=== PATIENT | female | born 1975 | race Caucasian/White ===

== ENCOUNTER 2018-12-02 10:43 | Emergency (ER) | payer OTHER, SELFPAY ==
[2018-12-02 10:52] VITALS: BP 153/83; PULSE 88; RESP 12; TEMP 36.8; O2SAT 99; BMI 22.6
[2018-12-02 11:44] LABS: Add Manual Diff / Slide Review NO; Basophils Absolute Auto 100 /uL (0-100); Basophils Percent Auto 1.3 % (0-2); Eosinophils Absolute Auto 200 /uL (0-450); Hematocrit 39.6 % (36-46); Hemoglobin 13.3 g/dL (12.0-16.0); Lymphocytes Absolute Auto 2000 /uL (1100-4500); Lymphocytes Percent Auto 36.8 % (25-40); Mean Corpuscular HGB Conc 33.6 % (30-36); Mean Corpuscular Hemoglobin 31.7 PG (26-34); Mean Corpuscular Volume 94.5 fL (80-100); Monocytes Absolute Auto 400 /uL (0-900); Monocytes Percent Auto 6.9 % (3-14); Neutrophils Absolute Auto 2800 /uL (1500-7000); Platelet Count 219 X10^3/uL (150-400); Red Blood Cell Count 4.19 X10^6/uL (4.0-5.2); Red Cell Distribution Width 11.9 % (11.6-14.8); White Blood Cell Count 5.4 X10^3/uL (4.5-11.0)
[2018-12-02] MEDS: IBUPROFEN 400 MG TABLET 800 MG PO (11:47)
--- NOTE | 2018-12-02 11:58 | ED.EXTPRO ---
HPI - Extremity Problem General Chief complaint: Extremity Injury, Upper Stated complaint: LF ARM TINGLING Time Seen by Provider: 12/02/18 10:58 Source: patient Mode of arrival: ambulatory Limitations: no limitations History of Present Illness HPI Narrative: Patient complains of left shoulder and arm tightness and pain that started around 9:00 a.m. this morning. She states she was just going about her day, working from home and making breakfast when she began to notice a tightness in her arm. She states she thought that her shirt was too tight, so she changed her shirt, but the symptoms continued to worsen. Patient denies any associated symptoms; no chest pain, shortness of breath, dizziness, nausea, or sense of doom. She has never had symptoms like this before. She states she works out regularly, and has not noticed any decrease in her exercise tolerance. No shortness of breath or chest pain with exertion. Patient has no personal history of any medical problems. She states she does not have any family members who have had CT or stroke in their 40s. No other complaints at this time. She states the tightness has persisted, and that since the tightness began she also began to feel a numb and tingling sensation in her left hand. She states that this is about the same as it was earlier. Nothing makes it better or worse. Related Data Previous Rx's Medication Instructions Recorded bupropion HCl SR 100 mg tablet,12 100 mg PO BID #180 tab 06/21/18 hr sustained-release fluconazole 150 mg tablet 150 mg PO ONCE #1 tab 08/08/18 alprazolam 1 mg tablet 1 mg PO TID PRN #40 tab 11/02/18 Allergies Allergy/AdvReac Type Severity Reaction Status Date / Time No Known Drug Allergies Allergy Unverified 08/31/18 13:03 Review of Systems Constitutional Denies chills, Denies fever(s), Denies lethargy and Denies weakness Eyes Denies change in vision, Denies eye discharge, Denies irritation and Denies loss of vision ENT Ears, Nose, Mouth, and Throat: Denies change in voice, Denies neck pain and Denies sore throat Cardiovascular Denies chest pain, Denies irregular heart rhythm, Denies lightheadedness, Denies palpitations, Denies dyspnea, Denies dyspnea on exertion and Denies orthopnea Respiratory Denies cough, Denies dyspnea, Denies dyspnea on exertion and Denies wheezing Gastrointestinal Gastrointestinal: Denies abdominal pain, Denies change in bowel habits, Denies diarrhea, Denies nausea and Denies vomiting Genitourinary Denies hematuria, Denies flank pain, Denies urinary incontinence and Denies urinary urgency Musculoskeletal Denies neck pain Comments: Left arm tightness. Integumentary/Breasts Denies pruritus, Denies erythema, Denies rash and Denies wounds Neurologic Denies confusion, Denies loss of vision and Denies weakness Comments: Paresthesias left hand Psychiatric Denies anxiety, Denies confusion, Denies depression, Denies homicidal ideation and Denies suicidal ideation Endocrine Denies palpitations Hematologic/Lymphatic Denies easy bruising Allergic/Immunologic Denies wheezing [facility] Medical History Anxiety (Chronic) Pyelonephritis (Chronic 2015) Surgical History Status post delivery (Resolved) Status post tubal ligation (Resolved 2014) Social History Smoking Status: Former smoker Social History Smoking Status: Former smoker Exam Initial Vital Signs Initial Vital Signs: Vital Signs Temperature 98.3 F 12/02/18 10:52 Pulse Rate 88 12/02/18 10:52 Respiratory Rate 12 12/02/18 10:52 Blood Pressure 153/83 H 12/02/18 10:52 Pulse Oximetry 99 12/02/18 10:52 Const General: cooperative and well developed Nutritional Appearance: well nourished Orientation: alert, awake, oriented x3 and not confused [facility] Head: normocephalic and atraumatic Ears: external ears normal and TM's normal bilaterally Nose: external nose normal and No nasal discharge Face and sinus: sinuses nontender, face symmetric, no sinus tenderness and No dry mucous membranes Mouth: oral mucosae normal and moist mucous membranes Teeth and gingiva: dentition normal Throat: tonsils normal and uvula midline Eyes General: appearance normal, both eyes and all related structures Eyelids: eyelids normal Conjunctivae: conjunctivae normal Sclera: sclerae normal Pupils: PERRL EOM: EOM intact bilaterally Neck Neck: normal visual inspection, trachea midline, No lymphadenopathy, No midline deformity and No JVD Lymphatic: No lymphedema Chest Chest: normal inspection of the chest Resp Effort & Inspection: normal respiratory effort, able to speak in complete sentences, no respiratory distress and no use of accessory muscles Auscultation: clear to auscultation bilaterally, no rales, no rhonchi and no wheezes Cardio Rate: regular rate Rhythm: regular rhythm Heart Sounds: no click, no gallops, no murmurs and no rubs Pulses: normal peripheral pulses GI Inspection: non-distended Palpation: soft, no hepatosplenomegaly, No guarding, No pulsatile mass and No tender Auscultation: normal bowel sounds Back/Spine/Pelvis Back: No CVA tenderness Cervical Spine: cervical ROM normal and No pain with cervical ROM Thoracic/Lumbar Spine: thoracic and lumbar spine normal to inspection Skin General: no rashes or lesions noted, No jaundice and No petechiae Neuro General: alert, oriented x3, gait normal and no focal motor deficits Speech: speech normal Extrem General: full ROM, no clubbing, cyanosis or edema, no pedal edema and no calf tenderness Psych Appearance: well kempt Mental Status: mental status grossly normal Attitude: cooperative Thought Content: normal and suicidality Judgment: judgment good Course Course Narrative: Patient was very low risk for an CT or other serious cause of her left arm pain. However, the patient was very concerned about the possibility of an CT, given her age, and I did discuss with the patient and her that although she is extremely low risk the only way to know for sure whether she has had a cardiac event is to perform cardiac panel repeat troponin. The patient prefers to go this route. Patient was worked up with labs, including cardiac panel, and initial troponin was negative. A 2nd troponin was drawn 3 hr later, and this was also negative. Patient was feeling better, and I felt she was stable for discharge home. I have advised her that if she would has no further symptoms, then she does not need to have further workup. However, if she develops these symptoms repeatedly, then she should have a stress test just to be sure there is nothing concerning going on. Patient expresses understanding and is agreeable to plan. We have discussed the usual indications for return. Orders Ordered: ED Orders 12/02/18 11:35 Complete Blood Count AUTO DIFF Stat Comprehensive Metabolic Panel Stat Troponin & CK Cardiac Panel Stat 12/02/18 14:18 Troponin I Stat Discontinued Medications Ibuprofen (Advil) 800 mg PO NOW ONE Stop: 12/02/18 11:24 Last Admin: 12/02/18 11:47 Dose: 800 mg Vital Signs - 8 hr 12/02/18 12:32 12/02/18 14:46 12/02/18 15:37 Temperature 98.4 F Pulse Rate 76 69 78 Respiratory Rate 17 16 16 Blood Pressure [Left Arm] 128/93 H 130/91 H 130/92 H Pulse Oximetry 100 100 98 MDM - Extremity (Nontraumatic) Medical Records Attestation: I reviewed the patient's medical records. Lab Data Attestation: I reviewed the patient's lab results. Result diagrams: 12/02/18 11:35 12/02/18 11:35 Lab Results 12/02/18 12/02/18 12/02/18 Range/Units 11:35 11:35 14:18 WBC 5.4 (4.5-11.0) X10^3/uL RBC 4.19 (4.0-5.2) X10^6/uL Hgb 13.3 (12.0-16.0) g/dL Hct 39.6 (36-46) % MCV 94.5 (80-100) fL MCH 31.7 (26-34) PG MCHC 33.6 (30-36) % RDW 11.9 (11.6-14.8) % Plt Count 219 (150-400) X10^3/uL Neut % (Auto) 52.0 (50-75) % Lymph % (Auto) 36.8 (25-40) % [place] % (Auto) 6.9 (3-14) % Eos % (Auto) 3.0 (2-4) % Baso % (Auto) 1.3 (0-2) % Neut # (Auto) 2800 (3578-7036) /uL Lymph # (Auto) 2000 (5544-6984) /uL [place] # (Auto) 400 (0-900) /uL Eos # (Auto) 200 (0-450) /uL Baso # (Auto) 100 (0-100) /uL Sodium 140 (137-145) mmol/L Potassium 3.8 (3.4-5.1) mmol/L Chloride 104 (98-107) mmol/L Carbon Dioxide 26 (22-32) mmol/L BUN 9 (7-17) mg/dL Creatinine 0.60 (0.52-1.04) mg/dL Estimated GFR > 60.0 (>60) mL/min BUN/Creatinine Ratio 15.0 (6-22) Glucose 89 (70-100) mg/dL Calcium 9.2 (8.4-10.2) mg/dL Total Bilirubin 0.4 (0.2-1.3) mg/dL AST 24 (14-36) IU/L ALT 30 (9-52) IU/L Alkaline Phosphatase 58 (38-126) U/L Total Creatine Kinase 51 (30-135) U/L CK-MB (CK-2) TNP CK-MB (CK-2) Rel Index TNP Troponin I < 0.012 < 0.012 (0.01-0.034) ng/mL Total Protein 6.8 (6.3-8.2) g/dL Albumin 4.3 (3.5-5.0) g/dL Globulin 2.5 (1.7-4.1) g/dL Albumin/Globulin Ratio 1.7 (1.0-2.8) ECG Data Attestation EKG: I personally reviewed and interpreted this ECG as follows: Prior ECG tracings: not available for review Interpretation: Twelve lead EKG performed December 02, 2018 at 10:54 a.m., as follows: Regular ventricular rhythm with a rate of 75 beats per minute [place] interval 148 milliseconds QRS duration 106 millisecond QTC interval 412 milliseconds No ectopy Nonspecific ST T wave changes Interpretation: Normal sinus rhythm; incomplete right bundle-branch block; no STEMI; borderline EKG as interpreted by ED MD. Discharge Plan Departure Patient Disposition: Home Clinical Impression: Arm pain, left Discharge Date/Time: 12/02/18 15:45 Interventions: ED Discharge Assessment Last Done: 12/02/18 15:45 Instructions: DI for Arm Pain Activity Restrictions/Additional Instructions: Everything looked good today. Both sets of your cardiac enzymes were normal. There is no evidence of a heart attack or other serious condition. Prescriptions: No Action fluconazole 150 mg tablet 150 mg PO ONCE Qty: 1 RF: 0 alprazolam [Xanax] 1 mg tablet 1 mg PO TID PRN (Reason: anxiety) Qty: 40 RF: 0 bupropion HCl [Wellbutrin SR] 100 mg tablet extended release 12 hr 100 mg PO BID Qty: 180 RF: 0 Referrals: Vianey Verde ARNP [Primary Care Provider] -
--- NOTE | 2018-12-02 12:02 | ED_ITS ---
HPI - Extremity Problem General Chief complaint: Extremity Injury, Upper Stated complaint: LF ARM TINGLING Time Seen by Provider: 12/02/18 10:58 Source: patient Mode of arrival: ambulatory Limitations: no limitations History of Present Illness HPI Narrative: Patient complains of left shoulder and arm tightness and pain that started around 9:00 a.m. this morning. She states she was just going about her day, working from home and making breakfast when she began to notice a tightness in her arm. She states she thought that her shirt was too tight, so she changed her shirt, but the symptoms continued to worsen. Patient denies any associated symptoms; no chest pain, shortness of breath, dizziness, nausea, or sense of doom. She has never had symptoms like this before. She states she works out regularly, and has not noticed any decrease in her exercise tolerance. No shortness of breath or chest pain with exertion. Patient has no personal history of any medical problems. She states she does not have any family members who have had VA or stroke in their 40s. No other complaints at this time. She states the tightness has persisted, and that since the tightness began she also began to feel a numb and tingling sensation in her left hand. She states that this is about the same as it was earlier. Nothing makes it better or worse. Related Data Previous Rx's Medication Instructions Recorded bupropion HCl SR 100 mg tablet,12 100 mg PO BID #180 tab 06/21/18 hr sustained-release fluconazole 150 mg tablet 150 mg PO ONCE #1 tab 08/08/18 alprazolam 1 mg tablet 1 mg PO TID PRN #40 tab 11/02/18 Allergies Allergy/AdvReac Type Severity Reaction Status Date / Time No Known Drug Allergies Allergy Unverified 08/31/18 13:03 Review of Systems Constitutional Denies chills, Denies fever(s), Denies lethargy and Denies weakness Eyes Denies change in vision, Denies eye discharge, Denies irritation and Denies loss of vision ENT Ears, Nose, Mouth, and Throat: Denies change in voice, Denies neck pain and Denies sore throat Cardiovascular Denies chest pain, Denies irregular heart rhythm, Denies lightheadedness, Denies palpitations, Denies dyspnea, Denies dyspnea on exertion and Denies orthopnea Respiratory Denies cough, Denies dyspnea, Denies dyspnea on exertion and Denies wheezing Gastrointestinal Gastrointestinal: Denies abdominal pain, Denies change in bowel habits, Denies diarrhea, Denies nausea and Denies vomiting Genitourinary Denies hematuria, Denies flank pain, Denies urinary incontinence and Denies urinary urgency Musculoskeletal Denies neck pain Comments: Left arm tightness. Integumentary/Breasts Denies pruritus, Denies erythema, Denies rash and Denies wounds Neurologic Denies confusion, Denies loss of vision and Denies weakness Comments: Paresthesias left hand Psychiatric Denies anxiety, Denies confusion, Denies depression, Denies homicidal ideation and Denies suicidal ideation Endocrine Denies palpitations Hematologic/Lymphatic Denies easy bruising Allergic/Immunologic Denies wheezing [facility] Medical History Anxiety (Chronic) Pyelonephritis (Chronic 2015) Surgical History Status post delivery (Resolved) Status post tubal ligation (Resolved 2014) Social History Smoking Status: Former smoker Social History Smoking Status: Former smoker Exam Initial Vital Signs Initial Vital Signs: Vital Signs Temperature 98.3 F 12/02/18 10:52 Pulse Rate 88 12/02/18 10:52 Respiratory Rate 12 12/02/18 10:52 Blood Pressure 153/83 H 12/02/18 10:52 Pulse Oximetry 99 12/02/18 10:52 Const General: cooperative and well developed Nutritional Appearance: well nourished Orientation: alert, awake, oriented x3 and not confused [facility] Head: normocephalic and atraumatic Ears: external ears normal and TM's normal bilaterally Nose: external nose normal and No nasal discharge Face and sinus: sinuses nontender, face symmetric, no sinus tenderness and No dry mucous membranes Mouth: oral mucosae normal and moist mucous membranes Teeth and gingiva: dentition normal Throat: tonsils normal and uvula midline Eyes General: appearance normal, both eyes and all related structures Eyelids: eyelids normal Conjunctivae: conjunctivae normal Sclera: sclerae normal Pupils: PERRL EOM: EOM intact bilaterally Neck Neck: normal visual inspection, trachea midline, No lymphadenopathy, No midline deformity and No JVD Lymphatic: No lymphedema Chest Chest: normal inspection of the chest Resp Effort & Inspection: normal respiratory effort, able to speak in complete sentences, no respiratory distress and no use of accessory muscles Auscultation: clear to auscultation bilaterally, no rales, no rhonchi and no wheezes Cardio Rate: regular rate Rhythm: regular rhythm Heart Sounds: no click, no gallops, no murmurs and no rubs Pulses: normal peripheral pulses GI Inspection: non-distended Palpation: soft, no hepatosplenomegaly, No guarding, No pulsatile mass and No tender Auscultation: normal bowel sounds Back/Spine/Pelvis Back: No CVA tenderness Cervical Spine: cervical ROM normal and No pain with cervical ROM Thoracic/Lumbar Spine: thoracic and lumbar spine normal to inspection Skin General: no rashes or lesions noted, No jaundice and No petechiae Neuro General: alert, oriented x3, gait normal and no focal motor deficits Speech: speech normal Extrem General: full ROM, no clubbing, cyanosis or edema, no pedal edema and no calf tenderness Psych Appearance: well kempt Mental Status: mental status grossly normal Attitude: cooperative Thought Content: normal and suicidality Judgment: judgment good Course Course Narrative: Patient was very low risk for an VA or other serious cause of her left arm pain. However, the patient was very concerned about the possibility of an VA, given her age, and I did discuss with the patient and her that although she is extremely low risk the only way to know for sure whether she has had a cardiac event is to perform cardiac panel repeat troponin. The patient prefers to go this route. Patient was worked up with labs, including cardiac panel, and initial troponin was negative. A 2nd troponin was drawn 3 hr later, and this was also negative. Patient was feeling better, and I felt she was stable for discharge home. I have advised her that if she would has no further symptoms, then she does not need to have further workup. However, if she develops these symptoms repeatedly, then she should have a stress test just to be sure there is nothing concerning going on. Patient expresses understanding and is agreeable to plan. We have discussed the usual indications for return. Orders Ordered: ED Orders 12/02/18 11:35 Complete Blood Count AUTO DIFF Stat Comprehensive Metabolic Panel Stat Troponin & CK Cardiac Panel Stat 12/02/18 14:18 Troponin I Stat Discontinued Medications Ibuprofen (Advil) 800 mg PO NOW ONE Stop: 12/02/18 11:24 Last Admin: 12/02/18 11:47 Dose: 800 mg Vital Signs - 8 hr 12/02/18 12:32 12/02/18 14:46 12/02/18 15:37 Temperature 98.4 F Pulse Rate 76 69 78 Respiratory Rate 17 16 16 Blood Pressure [Left Arm] 128/93 H 130/91 H 130/92 H Pulse Oximetry 100 100 98 MDM - Extremity (Nontraumatic) Medical Records Attestation: I reviewed the patient's medical records. Lab Data Attestation: I reviewed the patient's lab results. Result diagrams: 12/02/18 11:35 12/02/18 11:35 Lab Results 12/02/18 12/02/18 12/02/18 Range/Units 11:35 11:35 14:18 WBC 5.4 (4.5-11.0) X10^3/uL RBC 4.19 (4.0-5.2) X10^6/uL Hgb 13.3 (12.0-16.0) g/dL Hct 39.6 (36-46) % MCV 94.5 (80-100) fL MCH 31.7 (26-34) PG MCHC 33.6 (30-36) % RDW 11.9 (11.6-14.8) % Plt Count 219 (150-400) X10^3/uL Neut % (Auto) 52.0 (50-75) % Lymph % (Auto) 36.8 (25-40) % [place] % (Auto) 6.9 (3-14) % Eos % (Auto) 3.0 (2-4) % Baso % (Auto) 1.3 (0-2) % Neut # (Auto) 2800 (0471-8069) /uL Lymph # (Auto) 2000 (7874-3111) /uL [place] # (Auto) 400 (0-900) /uL Eos # (Auto) 200 (0-450) /uL Baso # (Auto) 100 (0-100) /uL Sodium 140 (137-145) mmol/L Potassium 3.8 (3.4-5.1) mmol/L Chloride 104 (98-107) mmol/L Carbon Dioxide 26 (22-32) mmol/L BUN 9 (7-17) mg/dL Creatinine 0.60 (0.52-1.04) mg/dL Estimated GFR > 60.0 (>60) mL/min BUN/Creatinine Ratio 15.0 (6-22) Glucose 89 (70-100) mg/dL Calcium 9.2 (8.4-10.2) mg/dL Total Bilirubin 0.4 (0.2-1.3) mg/dL AST 24 (14-36) IU/L ALT 30 (9-52) IU/L Alkaline Phosphatase 58 (38-126) U/L Total Creatine Kinase 51 (30-135) U/L CK-MB (CK-2) TNP CK-MB (CK-2) Rel Index TNP Troponin I < 0.012 < 0.012 (0.01-0.034) ng/mL Total Protein 6.8 (6.3-8.2) g/dL Albumin 4.3 (3.5-5.0) g/dL Globulin 2.5 (1.7-4.1) g/dL Albumin/Globulin Ratio 1.7 (1.0-2.8) ECG Data Attestation EKG: I personally reviewed and interpreted this ECG as follows: Prior ECG tracings: not available for review Interpretation: Twelve lead EKG performed December 02, 2018 at 10:54 a.m., as follows: Regular ventricular rhythm with a rate of 75 beats per minute [place] interval 148 milliseconds QRS duration 106 millisecond QTC interval 412 milliseconds No ectopy Nonspecific ST T wave changes Interpretation: Normal sinus rhythm; incomplete right bundle-branch block; no STEMI; borderline EKG as interpreted by ED MD. Discharge Plan Departure Patient Disposition: Home Clinical Impression: Arm pain, left Discharge Date/Time: 12/02/18 15:45 Interventions: ED Discharge Assessment Last Done: 12/02/18 15:45 Instructions: DI for Arm Pain Activity Restrictions/Additional Instructions: Everything looked good today. Both sets of your cardiac enzymes were normal. There is no evidence of a heart attack or other serious condition. Prescriptions: No Action fluconazole 150 mg tablet 150 mg PO ONCE Qty: 1 RF: 0 alprazolam [Xanax] 1 mg tablet 1 mg PO TID PRN (Reason: anxiety) Qty: 40 RF: 0 bupropion HCl [Wellbutrin SR] 100 mg tablet extended release 12 hr 100 mg PO BID Qty: 180 RF: 0 Referrals: Vianey Verde ARNP [Primary Care Provider] -
[2018-12-02 12:11] LABS: Alanine Aminotransferase 30 IU/L (9-52); Albumin 4.3 g/dL (3.5-5.0); Albumin Globulin Ratio 1.7 (1.0-2.8); Alkaline Phosphatase 58 U/L (38-126); Aspartate Aminotransferase 24 IU/L (14-36); Bilirubin Total 0.4 mg/dL (0.2-1.3); Blood Urea Nitrogen 9 mg/dL (7-17); Calcium 9.2 mg/dL (8.4-10.2); Carbon Dioxide 26 mmol/L (22-32); Chloride 104 mmol/L (98-107); Creatine Kinase 51 U/L (30-135); Estimated Glomerular Filt Rate > 60.0 mL/min (>60); Globulin 2.5 g/dL (1.7-4.1); Glucose 89 mg/dL (70-100); HEMOLYSIS < 15 (0-50); Potassium 3.8 mmol/L (3.4-5.1); Sodium 140 mmol/L (137-145); Total Protein 6.8 g/dL (6.3-8.2)
[2018-12-02 12:26] LABS: Troponin I < 0.012 ng/mL (0.01-0.034)
[2018-12-02 12:32] VITALS: BP 128/93; PULSE 76; RESP 17; O2SAT 100
[2018-12-02 14:46] VITALS: BP 130/91; PULSE 69; RESP 16; TEMP 36.9; O2SAT 100
[2018-12-02 14:54] LABS: Troponin I < 0.012 ng/mL (0.01-0.034)
[2018-12-02 15:37] VITALS: BP 130/92; PULSE 78; RESP 16; O2SAT 98
== END 2018-12-02 15:45 | disposition home or self-care (01) ==
PROVIDERS: Emergency Provider Emergency Medicine; PCP Registered Nurse
DX: M79.602 Pain in left arm (principal)
CPT/HCPCS: 36415; 80053; 82550; 84484; 85025; 93005; 99283; 99284

== ENCOUNTER → 2018-12-06 12:28 | Outpatient (CLI) | payer OTHER, SELFPAY ==
--- NOTE | 2018-12-06 12:29 | DI.MG.S_ITS ---
BILATERAL DIGITAL SCREENING MAMMOGRAM 3D/2D WITH CAD: 12/06/2018 CLINICAL: Routine screening. No prior exams were available for comparison. The tissue of both breasts is heterogeneously dense. This may lower the sensitivity of mammography. Current study was also evaluated with a Computer Aided Detection (CAD) system. No significant masses, calcifications, or other findings are seen in either breast. IMPRESSION: NEGATIVE There is no mammographic evidence of malignancy. A 1 year screening mammogram is recommended. This exam was interpreted at Station ID: [id number]. NOTE: For mammograms, a report in lay terms will be sent to the patient. Approximately 15% of breast malignancies will not be visualized mammographically. In the management of a palpable breast mass, a negative mammogram must not discourage biopsy of a clinically suspicious lesion. Electronically Signed By: Jose lozada/sierra:12/06/2018 13:15:50 letter sent: Normal Exam ACR BI-RADS Category 1: Negative [id number]
== END ==
PROVIDERS: PCP Registered Nurse; Visit Provider Registered Nurse
DX: Z12.31 Encounter for screening mammogram for malignant neoplasm of breast (principal)
CPT/HCPCS: 77063; 77067

== ENCOUNTER 2018-12-15 11:14 | Observation (INO) | payer OTHER, SELFPAY ==
[2018-12-15] VITALS (12 sets, daily range): BP systolic 114–162; BP diastolic 72–110; PULSE 66–90; RESP 14–19; TEMP 36.6–37; O2SAT 95–100; BMI 21.9
--- NOTE | 2018-12-15 | DI.MRI.S_ITS ---
PROCEDURE: MR STROKE Pre- and post-contrast brain MRI, non-contrast brain MR angiogram, pre- and postcontrast neck MR angiogram INDICATIONS: TIA, left headache, right visual field change TECHNIQUE: Brain: Noncontrast axial T1 spin echo, axial T2 fast spin echo, sagittal and axial FLAIR, coronal T2 fast spin echo, axial gradient echo, axial diffusion and ADC through the brain. After the administration of contrast, axial 3D VIBE of the cranial vasculature and brain. Brain MRA: Non-contrast 3-D time of flight MR angiogram, with multiple ebxmgyl-gzbxvkqbc-yylybnwayi (MIP) reformats performed. Neck MRA: Axial and sagittal TruFISP through the neck. Coronal dynamic MR angiogram during administration of contrast in the arterial and venous phases, with 3-dimenstional zxjisza-dyjlgmftt-vmojgxwmqk (MIP) reformats constructed from subtraction images. COMPARISON: None. FINDINGS: Image quality: Excellent. BRAIN: CSF spaces: Ventricles are normal in size and shape. Basal cisterns are patent. No extra-axial fluid collections. Brain: No intracranial bleeds or mass effects. Currie-white matter interface is normal. Diffusion weighted images show no acute ischemic insults. Brainstem appears normal. Normal intravascular flow voids are present. No abnormal intracranial enhancement. Skull and face: Calvarial marrow signal is normal. Orbits appear normal. Sinuses: Sinuses and mastoids are clear except for minimal mucosal thickening in the floor of the maxillary antrum bilaterally. BRAIN MR ANGIOGRAM: Anterior circulation: Intracranial internal carotid arteries are normal in size and enhancement. The flow within the paired anterior cerebral arteries is normal and symmetric. The flow within the middle cerebral arteries is normal and symmetric. The anterior communicating artery is seen. No stenoses, occlusions, or aneurysms. Posterior circulation: The visualized portions of the vertebral arteries demonstrate normal caliber, and join to form a normal appearing basilar artery. The flow within the posterior cerebral arteries is normal and symmetric. No stenoses, occlusions, or aneurysms. NECK MR ANGIOGRAM: Carotids: Great vessels demonstrate a bovine anatomy as they arise from the aortic arch. The origins of the common carotid arteries appear patent. The calibers and courses of both common carotid arteries are normal. The bifurcation regions appear normal bilaterally. The internal carotid arteries demonstrate normal course and caliber. Posterior circulation: The origins of the vertebral arteries appear patent. More superior portions of both vertebral arteries demonstrate normal course and caliber, and join to form a normal appearing basilar artery. Miscellaneous: Subclavian arteries appear patent. Pre-contrast images through the neck show no soft tissue abnormalities. IMPRESSION: BRAIN MRI: No evidence of acute ischemia. Minimal bilateral maxillary sinus disease. BRAIN MR ANGIOGRAM: Negative examination. No intracranial stenosis or occlusion. NECK MR ANGIOGRAM: Negative examination. No ICA stenosis Dictated by: Saqib Owen M.D. on 12/16/2018 at 11:17 Approved by: Saqib Owen M.D. on 12/16/2018 at 11:27
--- NOTE | 2018-12-15 11:28 | DI.CT.S_ITS ---
PROCEDURE: CT HEAD/BRAIN WO CON INDICATIONS: blurred vision, slurred speech, TPA CANDIDATE TECHNIQUE: Noncontrast 4.5 mm thick angled axial sections acquired from the foramen magnum to the vertex, with coronal and sagittal reformats. For radiation dose reduction, the following was used: automated exposure control, adjustment of mA and/or kV according to patient size. COMPARISON: None. FINDINGS: Image quality: Excellent. CSF spaces: Basal cisterns are patent. No extra-axial fluid collections. Ventricles are normal in size and shape. Brain: No midline shift. No intracranial masses or hemorrhage. Currie-white matter interface is normal. Skull and face: Calvarium and visualized facial bones are intact, without suspicious lesions. Sinuses: Visualized sinuses and mastoids are clear. IMPRESSION: Normal head CT. The result was discussed with Dr. Sathya Jackson on 12/15/2018 at 1134 hours. Dictated by: Anthony Randhawa M.D. on 12/15/2018 at 11:31 Approved by: Anthony Randhawa M.D. on 12/15/2018 at 11:35
[2018-12-15 11:43] LABS: Add Manual Diff / Slide Review NO; Basophils Absolute Auto 100 /uL (0-100); Basophils Percent Auto 1.1 % (0-2); Eosinophils Absolute Auto 200 /uL (0-450); Hemoglobin 13.9 g/dL (12.0-16.0); Lymphocytes Absolute Auto 2300 /uL (1100-4500); Lymphocytes Percent Auto 35.4 % (25-40); Mean Corpuscular Hemoglobin 31.5 PG (26-34); Mean Corpuscular Volume 92.9 fL (80-100); Monocytes Absolute Auto 500 /uL (0-900); Monocytes Percent Auto 7.2 % (3-14); Neutrophils Absolute Auto 3500 /uL (1500-7000); Neutrophils Percent Auto 53.3 % (50-75); Platelet Count 205 X10^3/uL (150-400); Red Blood Cell Count 4.41 X10^6/uL (4.0-5.2); Red Cell Distribution Width 12.1 % (11.6-14.8); White Blood Cell Count 6.5 X10^3/uL (4.5-11.0)
[2018-12-15 11:50] LABS: INR 0.9 (0.9-1.3); Prothrombin Time 10.7 SECONDS (10.1-12.7)
[2018-12-15 11:52] LABS: PTT Partial Thromboplastin Tim 34 SECONDS (26.4-36.2)
[2018-12-15 11:55] LABS: BUN Creatinine Ratio 18.3 (6-22); Blood Urea Nitrogen 11 mg/dL (7-17); Calcium 9.3 mg/dL (8.4-10.2); Carbon Dioxide 24 mmol/L (22-32); Chloride 103 mmol/L (98-107); Estimated Glomerular Filt Rate > 60.0 mL/min (>60); Glucose 96 mg/dL (70-100); HEMOLYSIS < 15 (0-50); Potassium 3.9 mmol/L (3.4-5.1); Sodium 138 mmol/L (137-145)
--- NOTE | 2018-12-15 12:03 | ED_ITS ---
HPI - Neuro Symptoms/Deficit General Chief Complaint: Neuro Symptoms/Deficit Stated Complaint: R EYE WEIRD VISION,SLURRED SPEECH THIS MORNING Time Seen by Provider: 12/15/18 11:20 Source: patient Mode of arrival: ambulatory Limitations: no limitations History of Present Illness HPI Narrative: 42-year-old female, nonsmoker, otherwise healthy presents at the request of her water resources engineer for evaluation of stroke-like symptoms. The patient was in normal state of health until 915 this morning when she developed a near complete visual field cut and had slurred speech and trouble finding words. She presented to her water resources engineer who performed an ophthalmological exam and found no abnormal findings at which point the patient was sent here for stroke evaluation. Of particular interest is the patient's presentation to our department last week with focal neurologic findings as evidence by weakness of the left upper extremity. Patient denies headache, any ongoing symptoms, fever chills or recent injury. Patient activated as code stroke and taken directly to CT scan Onset (ago): hour(s) Last Observed Normal: 09:15 Location: speech History of same: No Severity: mild Relieving factors: none Exacerbating factors: none Context: sudden onset On Anticoagulants: No Treatments Prior to Arrival: none Related Data Home Medications Medication Instructions Recorded Confirmed bupropion HCl [Wellbutrin SR] 100 mg PO DAILY 12/15/18 12/15/18 multivitamin 1 tab PO DAILY 12/15/18 12/15/18 Previous Rx's Medication Instructions Recorded alprazolam 1 mg tablet 1 mg PO TID PRN #40 tab 11/02/18 Allergies Allergy/AdvReac Type Severity Reaction Status Date / Time No Known Drug Allergies Allergy Unverified 08/31/18 13:03 Review of Systems Constitutional Denies chills, Denies fever(s), Denies lethargy and Denies weakness Eyes Denies change in vision, Denies eye discharge, Denies irritation and Reports loss of vision ENT Ears, Nose, Mouth, and Throat: Denies change in voice, Denies neck pain and Denies sore throat Cardiovascular Denies chest pain, Denies irregular heart rhythm, Denies lightheadedness, Denies palpitations, Denies dyspnea, Denies dyspnea on exertion and Denies orthopnea Respiratory Denies cough, Denies dyspnea, Denies dyspnea on exertion and Denies wheezing Gastrointestinal Gastrointestinal: Denies abdominal pain, Denies change in bowel habits, Denies diarrhea, Denies nausea and Denies vomiting Genitourinary Denies hematuria, Denies flank pain, Denies urinary incontinence and Denies urinary urgency Musculoskeletal Denies neck pain Integumentary/Breasts Denies pruritus, Denies erythema, Denies rash and Denies wounds Neurologic Reports abnormal speech, Denies confusion, Reports loss of vision and Denies weakness Psychiatric Denies anxiety, Denies confusion, Denies depression, Denies homicidal ideation and Denies suicidal ideation Endocrine Denies palpitations Hematologic/Lymphatic Denies easy bruising Allergic/Immunologic Denies wheezing [facility] Medical History Anxiety (Chronic) Pyelonephritis (Chronic 2015) Surgical History Status post delivery (Resolved) Status post tubal ligation (Resolved 2014) Social History household members: spouse and children Smoking Status: Former smoker Social History household members: spouse and children Smoking Status: Former smoker Exam Narrative Exam Narrative: GENERAL: This is a well-nourished, well-developed patient, in mild distress. HEAD: Atraumatic. Normocephalic. No temporal or scalp tenderness. EYES: Pupils equal round and reactive. Extraocular motions intact. No scleral icterus. No injection or drainage. ENT: Nose without bleeding, purulent drainage or septal hematoma. Throat without erythema, tonsillar hypertrophy or exudate. Uvula midline. Airway patent. NECK: Trachea midline. No JVD or lymphadenopathy. Supple, nontender, no meningeal signs. CARDIOVASCULAR: Regular rate and rhythm without murmurs, gallops, or rubs. RESPIRATORY: Clear to auscultation. Breath sounds equal bilaterally. No wheezes, rales, or rhonchi. GASTROINTESTINAL: Abdomen soft, non-tender, nondistended. No hepato- splenomegaly, or palpable masses. No guarding. EXTREMITIES: No clubbing, cyanosis, or edema. No joint tenderness, effusion, or edema noted. BACK: Nontender without deformity or crepitance. No flank tenderness. NEURO: AOx3. SKIN: No rash or erythema. Initial Vital Signs Initial Vital Signs: Vital Signs Pulse Rate 75 12/15/18 11:28 Respiratory Rate 15 12/15/18 11:28 Blood Pressure 162/110 H 12/15/18 11:28 Pulse Oximetry 100 12/15/18 11:28 Scores ABCD2 Age >= 60 years: no Initial BP. Either SBP >= 140 or DBP >= 90.: yes Clinical features of the TIA: speech disturbance without weakness Duration of symptoms: 10-59 minutes History of diabetes: no ABCD2 Score: 3 Course Orders Ordered: ED Orders 12/15/18 11:20 EKG-12 Lead Stat 12/15/18 11:28 CT head/brain wo con Stat 12/15/18 11:30 Basic Metabolic Panel Stat Complete Blood Count AUTO DIFF Stat Partial Thromboplastin Time Stat Prothrombin Time INR Stat 12/15/18 11:50 Urine Drug Screen, Rapid Stat 12/15/18 19:33 Consult to Discharge Planning Routine Consult to Physical Therapy Evaluate & Treat 12/16/18 Basic Metabolic Panel Routine Complete Blood Count AUTO DIFF Routine Lipid Panel Routine Acetaminophen (Tylenol) 650 mg PO Q6HR PRN PRN Reason: As Needed for Fever/Mild Pain Alprazolam (Xanax) 1 mg PO TID PRN PRN Reason: anxiety Bupropion HCl (Wellbutrin Sr) 100 mg PO DAILY [facility] Enoxaparin Sodium (Lovenox) 40 mg SUBCUT DAILY [facility] Sodium Chloride (Normal Saline 0.9%) 1,000 mls @ 150 mls/hr IV CONT DANIEL Last Infusion: 12/15/18 16:26 Dose: 150 mls/hr Admin: 12/15/18 12:14 Dose: 150 mls/hr Morphine Sulfate (Morphine) 2 mg IV Q4HR PRN PRN Reason: Pain, Moderate (4-6) Morphine Sulfate (Morphine) 4 mg IV Q4HR PRN PRN Reason: Pain, Severe (7-10) Ondansetron HCl (Zofran) 4 mg IV Q8HR PRN PRN Reason: Nausea And Vomiting Pantoprazole Sodium (Protonix) 20 mg PO 0600 [facility] Polyethylene Glycol (Miralax) 17 gm PO DAILY [facility] Reevaluation(s) Reevaluation #1: patient remains asymptomatic for duration of her stay in the emergency department Consultations Consultation #1: Dr. Green happy to accept Vital Signs - 8 hr 12/15/18 12:31 12/15/18 13:03 12/15/18 13:30 Temperature Pulse Rate 67 66 76 Respiratory Rate 14 19 18 Blood Pressure Blood Pressure [Right Arm] 147/90 H 126/90 127/89 Pulse Oximetry 100 100 100 12/15/18 14:15 12/15/18 14:45 12/15/18 15:30 Temperature Pulse Rate 81 76 88 Respiratory Rate 18 16 16 Blood Pressure Blood Pressure [Right Arm] 139/90 124/85 114/81 Pulse Oximetry 98 99 100 12/15/18 16:00 12/15/18 16:30 12/15/18 17:54 Temperature 98 F Pulse Rate 74 76 90 Respiratory Rate 16 16 Blood Pressure 152/86 H 132/90 Blood Pressure [Right Arm] 123/84 Pulse Oximetry 100 98 12/15/18 19:29 Temperature Pulse Rate Respiratory Rate Blood Pressure Blood Pressure [Right Arm] Pulse Oximetry 96 MDM - Neuro Symptoms/Deficit Lab Data Result diagrams: 12/15/18 11:30 12/15/18 11:30 Lab Results 12/15/18 12/15/18 12/15/18 Range/Units 11:30 11:30 11:30 WBC 6.5 (4.5-11.0) X10^3/uL RBC 4.41 (4.0-5.2) X10^6/uL Hgb 13.9 (12.0-16.0) g/dL Hct 41.0 (36-46) % MCV 92.9 (80-100) fL MCH 31.5 (26-34) PG MCHC 34.0 (30-36) % RDW 12.1 (11.6-14.8) % Plt Count 205 (150-400) X10^3/uL Neut % (Auto) 53.3 (50-75) % Lymph % (Auto) 35.4 (25-40) % Gilliam % (Auto) 7.2 (3-14) % Eos % (Auto) 3.0 (2-4) % Baso % (Auto) 1.1 (0-2) % Neut # (Auto) 3500 (9020-8174) /uL Lymph # (Auto) 2300 (5261-4870) /uL Gilliam # (Auto) 500 (0-900) /uL Eos # (Auto) 200 (0-450) /uL Baso # (Auto) 100 (0-100) /uL PT 10.7 (10.1-12.7) SECONDS INR 0.9 (0.9-1.3) APTT 34 (26.4-36.2) SECONDS Sodium 138 (137-145) mmol/L Potassium 3.9 (3.4-5.1) mmol/L Chloride 103 (98-107) mmol/L Carbon Dioxide 24 (22-32) mmol/L BUN 11 (7-17) mg/dL Creatinine 0.60 (0.52-1.04) mg/dL Estimated GFR > 60.0 (>60) mL/min BUN/Creatinine Ratio 18.3 (6-22) Glucose 96 (70-100) mg/dL Calcium 9.3 (8.4-10.2) mg/dL Urine Opiates Screen (Negative) Ur Oxycodone Screen (Negative) Urine Methadone Screen (Negative) Ur Barbiturates Screen (Negative) U Tricyclic Antidepress (Negative) Ur Phencyclidine Scrn (Negative) Ur Amphetamines Screen (Negative) U Methamphetamines Scrn (Negative) Ur MDMA Scrn (Ecstasy) (Negative) U Benzodiazepines Scrn (Negative) Urine Cocaine Screen (Negative) U Marijuana (THC) Screen (Negative) 12/15/18 Range/Units 11:50 WBC (4.5-11.0) X10^3/uL RBC (4.0-5.2) X10^6/uL Hgb (12.0-16.0) g/dL Hct (36-46) % MCV (80-100) fL MCH (26-34) PG MCHC (30-36) % RDW (11.6-14.8) % Plt Count (150-400) X10^3/uL Neut % (Auto) (50-75) % Lymph % (Auto) (25-40) % Gilliam % (Auto) (3-14) % Eos % (Auto) (2-4) % Baso % (Auto) (0-2) % Neut # (Auto) (9911-7097) /uL Lymph # (Auto) (5265-6337) /uL Gilliam # (Auto) (0-900) /uL Eos # (Auto) (0-450) /uL Baso # (Auto) (0-100) /uL PT (10.1-12.7) SECONDS INR (0.9-1.3) APTT (26.4-36.2) SECONDS Sodium (137-145) mmol/L Potassium (3.4-5.1) mmol/L Chloride (98-107) mmol/L Carbon Dioxide (22-32) mmol/L BUN (7-17) mg/dL Creatinine (0.52-1.04) mg/dL Estimated GFR (>60) mL/min BUN/Creatinine Ratio (6-22) Glucose (70-100) mg/dL Calcium (8.4-10.2) mg/dL Urine Opiates Screen Negative (Negative) Ur Oxycodone Screen Negative (Negative) Urine Methadone Screen Negative (Negative) Ur Barbiturates Screen Negative (Negative) U Tricyclic Antidepress Negative (Negative) Ur Phencyclidine Scrn Negative (Negative) Ur Amphetamines Screen Negative (Negative) U Methamphetamines Scrn Negative (Negative) Ur MDMA Scrn (Ecstasy) Negative (Negative) U Benzodiazepines Scrn Positive H (Negative) Urine Cocaine Screen Negative (Negative) U Marijuana (THC) Screen Negative (Negative) Point of Care Testing Glucose POC 103 Urine Dip Bedside Urine Glucose Negative Bedside Urine Bilirubin - Negative Bedside Urine Ketone - Negative Urine Specific Buras 1.015 Bedside Urine Occult Blood +/- Bedside Urine pH 6.0 Bedside Urine Protein - Negative Bedside Urine Urobilinogen - Negative Bedside Urine Nitrite - Negative Bedside Urine Leukocytes - Negative Esterase Imaging Data CT scan - head: Radiologist's impression: [address] [id number] [address] Scan Report Signed Patient: Deisy Felix [facility]#: [id number] : 1975Acct:[id number] Age/Sex: 42 / FDate of Service: 12/15/18 Loc: ED Accession Number: [id number] Procedure: CT head/brain wo con Ordering Provider: Victor M Mcdonnell D.O. PROCEDURE: CT HEAD/BRAIN WO CON INDICATIONS: blurred vision, slurred speech, TPA CANDIDATE TECHNIQUE: Noncontrast 4.5 mm thick angled axial sections acquired from the foramen magnum to the vertex, with coronal and sagittal reformats. For radiation dose reduction, the following was used: automated exposure control, adjustment of mA and/or kV according to patient size. COMPARISON: None. FINDINGS: Image quality: Excellent. CSF spaces: Basal cisterns are patent. No extra-axial fluid collections. Ventricles are normal in size and shape. Brain: No midline shift. No intracranial masses or hemorrhage. Currie-white matter interface is normal. Skull and face: Calvarium and visualized facial bones are intact, without suspicious lesions. Sinuses: Visualized sinuses and mastoids are clear. IMPRESSION: Normal head CT. The result was discussed with Dr. Sathya Jackson on 12/15/2018 at 1134 hours. Dictated by: Anthony Randhawa M.D. on 12/15/2018 at 11:31 Approved by: Anthony Randhawa M.D. on 12/15/2018 at 11:35 Discharge Plan Departure Patient Disposition: Admitted as Observation Clinical Impression: Brain TIA Discharge Date/Time: 12/15/18 16:00 Interventions: ED Discharge Assessment Last Done: 12/15/18 17:52 Admit Date/Time: 12/15/18 15:11 Admit Provider: Sharmila Green
[2018-12-15 12:11] LABS: Urine Amphetamines Negative (Negative); Urine Barbiturates Negative (Negative); Urine Benzodiazepines Positive (Negative); Urine Cocaine Negative (Negative); Urine MDMA Negative (Negative); Urine Methadone Negative (Negative); Urine Methamphetamines Negative (Negative); Urine Morphine/Opi cutoff 2000 Negative (Negative); Urine Oxycodone Negative (Negative); Urine Phencyclidine Negative (Negative); Urine Tetrahydrocannabinol Negative (Negative); Urine Tricyclic Antidepressant Negative (Negative)
[2018-12-15] MEDS: SODIUM CHLORIDE 0.9% 1,000 ML 150 ML IV (12:14)
--- NOTE | 2018-12-15 15:17 | PC.NURSE ---
pt states now the vision is no longer blurry but has a halo around both eye in upper vision field.
--- NOTE | 2018-12-15 19:08 | PC.NURSE ---
Addendum entered by Charo Mae R.N. 12/15/18 21:34: Pt watching TV. Med at 1945 w/tylenol for H/A. w/no relief. MS 2mg IV given at 2100 w/relief. Tele shows NSR per ICU staff. Uneventful evening. Call light w/in reach. Continue w/plan of care. Original Note: Pt arrived to RM 209 from ER awake/oriented. Pt and oriented to room and call system. Tele in place. NSR per ICU staff. NIH @ 0 at this time. IVF infusing into LFA via pump w/o incidence. Call light w/in reach.
[2018-12-15] MEDS: ACETAMINOPHEN 325 MG TABLET 650 MG PO (19:45)
[2018-12-15] MEDS: MORPHINE 2 MG/ML INJ IV (20:44)
[2018-12-15] MEDS: PANTOPRAZOLE 20 MG TABLET PO (20:45)
[2018-12-15] MEDS: ENOXAPARIN 40 MG/0.4 ML SYRINGE SUBCUT (20:45)
[2018-12-15] MEDS: MORPHINE 4 MG/ML INJ IV (21:50)
[2018-12-16] VITALS: BP 127/78; PULSE 76; RESP 16; TEMP 36.6; O2SAT 98
--- NOTE | 2018-12-16 01:44 | PC.NURSE ---
Addendum entered by Devika Chery R.N. 12/16/18 06:45: PT ABLE TO SLEEP OFF AND ON THROUGH-OUT THE NIGHT. REPORTS CEDENO RETURNED THIS MORNING. TYLENOL GIVEN. Original Note: ASSUMED CARE OF PT ON 12/15 AT 2300. RESTING IN BED DURING BEDSIDE HAND-OFF. REPORTS HEADACHE HAS IMPROVED AND DENIES FURTHER ANALGESICS. IVF TO PIV PER MD ORDERS. STEADY ON FEET TO BATHROOM. NIH 0. TELE IN PLACE. CPOX ON. SCD'S PLACED ON. PT VERBALIZED SHE WILL CALL FOR NEEDS.
[2018-12-16] MEDS: SODIUM CHLORIDE 0.9% 1,000 ML 150 ML IV ×2 (03:31→11:15)
--- NOTE | 2018-12-16 03:34 | P.HP_ITS ---
History of Present Illness Date Patient Seen: 12/15/18 Time Patient Seen: 19:15 Chief complaint: R EYE WEIRD VISION,SLURRED SPEECH THIS MORNING Narrative: This is a 42-year-old female with a history of anxiety and pyelonephritis who presents to the ER with a sudden onset of headache field c hange, and slurred speech patient reports having blurring the right visual field that appears to fact both eyes. The patient has associated headache that she describes as a band over the top of her head from ear to ear. She had sources previous headaches in the last 2 weeks described as left parietal stabbing pain. The patient due to her visual changes proceeded to see her passenger barge master at which time she developed difficulty speaking having difficulty with word finding. She does state that passenger barge master did have the opportunity to examine her retinas and did not see any immediate pathology. The passenger barge master directed the patient over to the ER for further evaluation. Additionally the patient was seen in our emergency room approximately 2 weeks ago per patient report for left arm numbness which was worked up with a cardiac evaluation and she was subsequently discharged home. The patient denies recent illness or trauma or prodromal symptoms to the events of the day. She indicates that she is under no more stress than usual. On arrival in the ER the patient was found have a blood pressure 162/110 with heart rate of 75, respiratory rate of 15 and saturation 100% on room air and afebrile with a temperature of 98? 0.0. Patient was evaluated per stroke protocol with no significant findings an EKG was also done that was reported as negative. On laboratory analysis the patient's CBC and chemistry are within normal limits. She has an INR 0.9 and a urine tox screen is positive for benzodiazepines with the patient taking Xanax as needed for anxiety. Patient is admitted to the hospital for ongoing evaluation and monitoring of her neurological symptoms. Patient History Medical History Anxiety (Chronic) Pyelonephritis (Chronic 2015) Surgical History Status post delivery (Resolved) Status post tubal ligation (Resolved 2014) Social History household members: spouse and children Smoking Status: Former smoker Family & Social History Family History Father In good health Mother No problems noted. Sister In good health Social History: household members spouse,children Prior Living Arrangements House Safety & Behavioral: Feels Safe in Current Yes Environment Been Physically Hurt or Yes Threatened By a Person Suicidal Ideation Description None Tobacco & Substance use: Smoking Status Former smoker Substance Use Type does not use Comment: The patient is to her 2nd lives in a single family home 3 children are all in good health. She reports her father is very active currently skiing in [place], her mother from suicide. She has 1 sibling sister who is in good health. Smoking: The patient is former smoker quitting over 20 years ago. She states she smoked 1 pack per week for 5 years. Alcohol: She describes as moderate Substance use: she denies recreational pharmaceuticals cannabis use Patient reports exercising daily Advanced directives patient wishes to be full code and designates her present has surrogate decision maker. Meds Home Medications Medication Instructions Recorded Confirmed Type alprazolam 1 mg tablet 1 mg PO TID PRN #40 tab 11/02/18 12/15/18 Rx bupropion HCl [Wellbutrin SR] 100 mg PO DAILY 12/15/18 12/15/18 History multivitamin 1 tab PO DAILY 12/15/18 12/15/18 History Allergies Allergy/AdvReac Type Severity Reaction Status Date / Time No Known Drug Allergies Allergy Unverified 08/31/18 13:03 Review of Systems Review of Systems Constitutional: Denies fevers, chills, sweats, fatigue, good appetite with stable weight Eyes: Positive for right lateral visual field loss now resolved, wears glasses, Denies denies floaters, diplopia ENT: Positive for headaches for last several weeks, now resolved, positive for dysarthria now resolved Denies hearing changes, ear pain, no nasal congestion, rhinorrhea, no sore throat or dentalgia, no neck stiffness or pain Respiratory: Denies SOB, cough, exertional dyspnea, wheezing Cardiovascular: Denies chest pain, palpitations, orthostatic dizziness, syncope, edema Gastrointestinal: Denies abdominal pain, nausea or vomiting, no reflux or bloating, constipation or diarrhea, denies blood in stool. Genitourinary: denies vaginal discharge, no complains of frequency, burning or urgency, hematuria on voiding Musculoskeletal: denies falls, weakness, limited movement, cramps, edema, myalgia or joint swelling. Integumentary: denies skin lesions, masses, rashes, hives, itching or hair loss Neurological: Positive for visual field changes with blurriness right lateral field in both eyes, difficulty word finding and slurred speech both now resolved, denies dizziness, numbness or tingling, seizures Psychiatric: Positive for stress in life and anxiety, denies disturbances in thought, attentions or mood, denies substance abuse Endocrine: denies excessive thirst or frequent urination, goiter, lethargy, abnormal sweating, and heat/cold intolerance. Heme/lymph: Denies lymphadenopathy, abnormal bleeding or bruising Exam Vital Signs (past 8 hours): - 12/15/18 20:16 12/16/18 00:00 Temperature 98.6 F 97.9 F Pulse Rate 78 76 Respiratory Rate 16 16 Blood Pressure 118/72 127/78 Pulse Oximetry 95 98 Oxygen Delivery Method Room Air Narrative Exam Narrative: General: Well developed, well nourished, in no acute distress. Skin: Warm, dry, pink, no rashes, no visible lesions HEENT: Normocephalic, symmetrical facies, PERRLA, EOMs intact without nystagmus, visual francis intact by confrontation, conjunctiva moist, sclera is anicteric, no ear pain, hearing grossly normal, no sinus tenderness to percussion, no rhinorrhea, oropharynx is moist and pink without lesions or exudate, uvula midl ine, posterior pharynx without inflammation, no cervical lymphadenopathy Neck: Supple, no masses, thyroid non tender without thyromegaly or nodules, trachea midline, no carotid bruits or JVD, no supraclavicular lymphadenopathy Cardiac: Regular rate and rhythm, S1-S2, no murmur, no gallops or rubs, 2+ radial pulse, 1+ dorsalis pedis pulse, capillary refill is brisk, no edema Chest: Symmetrical movement, breathing non labored, no cough present, BS equal bilateral without coarseness, crackles or wheezes Abdomen: Soft, no tenderness or guarding, no masses or organomegaly, no flank or suprapubic pain, BS normal. Back: Normal curvature, no tenderness to palpation, no CVA tenderness on percussion Extremities: Full ROM, no synovial effusions or deformities, strength 5/5 and symmetrical, stable gait Neuro: AAOx4, cranial nerves II-XII grossly intact, NIH score is 0, distal sensation intact to light touch, no paresthesias Psych: Cooperative, thought linear and coherent, stable mood and congruent affect Objective Labs Result Diagrams: 12/15/18 11:30 12/15/18 11:30 Labs: Laboratory Results - last 24 hr 12/15/18 12/15/18 12/15/18 11:30 11:30 11:30 WBC 6.5 RBC 4.41 Hgb 13.9 Hct 41.0 MCV 92.9 MCH 31.5 MCHC 34.0 RDW 12.1 Plt Count 205 Neut % (Auto) 53.3 Lymph % (Auto) 35.4 [place] % (Auto) 7.2 Eos % (Auto) 3.0 Baso % (Auto) 1.1 Neut # (Auto) 3500 Lymph # (Auto) 2300 [place] # (Auto) 500 Eos # (Auto) 200 Baso # (Auto) 100 PT 10.7 INR 0.9 APTT 34 Sodium 138 Potassium 3.9 Chloride 103 Carbon Dioxide 24 BUN 11 Creatinine 0.60 Estimated GFR > 60.0 BUN/Creatinine Ratio 18.3 Glucose 96 Calcium 9.3 Urine Opiates Screen Ur Oxycodone Screen Urine Methadone Screen Ur Barbiturates Screen U Tricyclic Antidepress Ur Phencyclidine Scrn Ur Amphetamines Screen U Methamphetamines Scrn Ur MDMA Scrn (Ecstasy) U Benzodiazepines Scrn Urine Cocaine Screen U Marijuana (THC) Screen 12/15/18 11:50 WBC RBC Hgb Hct MCV MCH MCHC RDW Plt Count Neut % (Auto) Lymph % (Auto) [place] % (Auto) Eos % (Auto) Baso % (Auto) Neut # (Auto) Lymph # (Auto) [place] # (Auto) Eos # (Auto) Baso # (Auto) PT INR APTT Sodium Potassium Chloride Carbon Dioxide BUN Creatinine Estimated GFR BUN/Creatinine Ratio Glucose Calcium Urine Opiates Screen Negative Ur Oxycodone Screen Negative Urine Methadone Screen Negative Ur Barbiturates Screen Negative U Tricyclic Antidepress Negative Ur Phencyclidine Scrn Negative Ur Amphetamines Screen Negative U Methamphetamines Scrn Negative Ur MDMA Scrn (Ecstasy) Negative U Benzodiazepines Scrn Positive H Urine Cocaine Screen Negative U Marijuana (THC) Screen Negative Assessment & Plan Assessment & Plan narrative: This is a 42-year-old female patient is admitted to the hospital for TIA. 1. Transitory ischemic attack, present on admission, now resolved -patient's symptoms involved right visual field loss blurring without complete cut, headache, speech slurring and mild aphasia -patient was similar possible neurologic symptoms evaluated 2 weeks ago worked up in the ER for left arm numbness with a cardiac evaluation, patient subsequently sent home with negative findings -the patient's symptoms have refill salt at time of evaluation. Patient denies further complaints of headache visual changes and is articulate. -the patient will be on Lovenox -will obtain a lipid panel -will obtain an MR stroke protocol 2. Elevated blood pressure, acute, present on arrival -patient had elevated blood pressure 162/110 without prior history of hyperte nsion -Pressure is returned back to within normal range -will continue to monitor pressures 3. Anxiety, chronic -patient with mild anxiety on examination -likely contributory to problem 2. -will hold alprazolam The patient is admitted to the hospital for continuous monitoring being high risk for complications. She will be on observation status with expected length of stay to be less than 2 midnights. Scores GCS [place] coma scale eye opening: Spontaneous [place] coma scale verbal response: Orientated [place] coma scale motor response: Obey commands [place] coma scale total score: 15 ABCD2 Age >= 60 years: no Initial BP. Either SBP >= 140 or DBP >= 90.: yes Clinical features of the TIA: other symptoms (Visual field loss) Duration of symptoms: >= 60 minutes History of diabetes: no ABCD2 Score: 3 NIHSS Level of Conciousness: Alert, keenly responsive Ask month/age: Answers both questions correctly. Open/close eyes, close hand: Performs both tasks correctly Best gaze horizontal: Normal Visual francis: No visual loss Facial palsy: Normal symetrical movement Left arm drift: No drift for full 10 sec Right arm drift: No drift for full 10 sec Left leg drift: No drift for full 10 sec Right leg drift: No drift for full 10 sec Limb ataxia: Absent Sensory on face/arms/legs: Normal, no sensory loss Best language: No aphasia, normal Dysarthria: Normal Extinction or inattention: No abnormality Total NIH Stroke scale score: 0 Quality VTE Deep Vein Thrombosis/Pulmonary Embolism Present on Admission: No
[2018-12-16 03:44] VITALS: BP 107/67; PULSE 73; RESP 16; TEMP 36.8; O2SAT 98
[2018-12-16] MEDS: PANTOPRAZOLE 20 MG TABLET PO (06:16)
[2018-12-16] MEDS: ACETAMINOPHEN 325 MG TABLET 650 MG PO (06:18)
[2018-12-16 06:38] LABS: Add Manual Diff / Slide Review NO; Basophils Absolute Auto 0 /uL (0-100); Basophils Percent Auto 0.7 % (0-2); Eosinophils Absolute Auto 300 /uL (0-450); Hematocrit 36.3 % (36-46); Hemoglobin 12.7 g/dL (12.0-16.0); Lymphocytes Absolute Auto 3100 /uL (1100-4500); Lymphocytes Percent Auto 49.3 % (25-40); Mean Corpuscular Volume 91.5 fL (80-100); Monocytes Absolute Auto 400 /uL (0-900); Monocytes Percent Auto 6.9 % (3-14); Neutrophils Absolute Auto 2400 /uL (1500-7000); Neutrophils Percent Auto 38.1 % (50-75); Platelet Count 187 X10^3/uL (150-400); Red Blood Cell Count 3.96 X10^6/uL (4.0-5.2); Red Cell Distribution Width 12.3 % (11.6-14.8); White Blood Cell Count 6.4 X10^3/uL (4.5-11.0)
[2018-12-16 06:44] LABS: BUN Creatinine Ratio 13.3 (6-22); Blood Urea Nitrogen 8 mg/dL (7-17); Calcium 8.3 mg/dL (8.4-10.2); Carbon Dioxide 24 mmol/L (22-32); Chloride 108 mmol/L (98-107); Cholesterol 156 mg/dL (140-199); Estimated Glomerular Filt Rate > 60.0 mL/min (>60); Glucose 92 mg/dL (70-100); HDL Cholesterol 34 mg/dL (40-60); HEMOLYSIS < 15 (0-50); LDL Cholesterol Calculated 72 mg/dL (<100); Sodium 137 mmol/L (137-145); Triglycerides 252 mg/dL (35-150)
[2018-12-16 07:22] VITALS: BP 122/75; PULSE 80; RESP 16; TEMP 36.7; O2SAT 98
[2018-12-16 08:29] VITALS: O2SAT 97
[2018-12-16] MEDS: buPROPion SR 100 MG TAB PO (10:40)
[2018-12-16] MEDS: POLYETHYLENE GLYCOL 3350 17 GM POWD.PACK PO (10:40)
[2018-12-16] MEDS: ENOXAPARIN 40 MG/0.4 ML SYRINGE SUBCUT (10:40)
--- NOTE | 2018-12-16 10:53 | PT.IIE ---
Surgical History (Last Reviewed 12/16/18 @ 03:44 by KIEL Garcia) Status post delivery (Resolved) Status post tubal ligation (Resolved 2014) Medical History (Last Reviewed 12/16/18 @ 03:44 by KIEL Garcia) Anxiety (Chronic) Pyelonephritis (Chronic 2015) Physical Therapy Inpatient Evaluation/Re-Eval M1 PT/OT-IP Prior Functional Status Start: 12/16/18 10:34 Freq: NEEDED Status: Active Protocol: Document 12/16/18 09:20 [facility] ([email or web address] Medical Review Prior Functional Status Medical History Reviewed Yes Communication No deficits noted Mobility and Gait Pt was an independent ambulator at home and community without using AD. Pt also works and drives. Activities of Daily Living and IADL's Pt was independent for all ADLs and IADLs without using AD. Social History Household Members spouse children Living Arrangements House Number of Floors (Floors) One Floor Number of Stairs To Enter/Railing? 3 NATHAN with no rails. 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 Per EMR, pt started experiencing L sided weakness and new onset of headache recently described as left parietal stabbing pain since 2 weeks ago. Pt also experienced visual changes and proceeded to see her wind turbine design engineer at which time she developed difficulty speaking having difficulty with word finding. The wind turbine design engineer directed the patient over to the ER for further evaluation. Pt presented elevated BP at 150s/ 90s upon ER admission and dx with TIA. M2 PT-IP Current Condition Start: 12/16/18 10:34 Freq: NEEDED Status: Active Protocol: Document 12/16/18 09:20 HH (Rec: 12/16/18 10:53 [email or web address]) Physical Therapy Current Condition Current Condition Evaluation Date 12/16/18 Treatment Diagnosis TIA, elevated blood pressure Onset Date 2 weeks ago Weight Bearing Status Weight Bearing Status Weight Bear as Tolerated M3 PT-IP Subjective Start: 12/16/18 10:34 Freq: NEEDED Status: Active Protocol: Document 12/16/18 09:20 HH (Rec: 12/16/18 10:53 [email or web address]) Subjective Physical Therapy Visit Type Type Initial Evaluation Visit Start Time 09:20 Visit Stop Time 09:35 Total Visit Minutes 15 Notes Nursing staff states pt's BP has been stabilized at 120s/ 70s who was also independent for functional activities without AD. Pt denies L side weakness or visual changes. Pt scheduled to have a MRI screen this am. Number of FORMING MACHINE TENDER Visits 0 Physical Therapy Visit Comments Patient Comments I dont feel any weakness, or visual changes at all. I've been doing good at this point. Patient Goals To return home. Therapy Pain Assessment Pain Present Pain Present Denied Pain M4 PT-IP Mobility and Gait Start: 12/16/18 10:34 Freq: NEEDED Status: Active Protocol: Document 12/16/18 09:20 (Rec: 12/16/18 10:53 [email or web address]) PT-Bed Mobility Assessment Supine to Sit Supine to Sit Independent Sit to Supine Sit to Supine Independent Scooting Scooting to Edge of Bed Independent Scooting Up and Down in Bed Independent PT-Transfer Assessment Sit to and From Stand Sit to and from Stand Independent Equipment Transfer Assistive Device None Transfers Transfer Destination Bed Chair Toilet Transfer Technique Stand Step Pivot Transfer Ability Level of Assist Independent Comments Mobility Comments Pt was in bed upon assessment, pt got up and went to bathroom independently without using AD. Pt presented steady gait and no signs of acute distress or LOB. Pt demonstrates safe transfer without any UE support. Gait Assessment Gait Gait Assistance Required: Independent Distance (Feet) 50 Able to Maintain Weight Bearing Status Yes During Gait Assistive Devices Assistive Device None Gait Deviations General Gait Pattern Within Normal Limits Comments Gait Comments Pt amb from EOB to bathroom and to hallway who was then picked up by staff and transferred to [facility] for MRI screen. Pt amb with a very steady gait without AD or need for UE support. Pt denies any discomfort and states I feel normal. Stair Climbing Assessment Comments Stair Climbing Comments did not attempt but medically estimated pt would be able to climb stairs without AD independently due to her current functional level. PT-Balance Assessment Sitting Balance and Reactions Static Sitting Balance Ability Normal Dynamic Sitting Balance Ability Normal Standing Balance and Reactions Static Standing Balance Ability Normal Dynamic Standing Balance Ability Normal Device Used none M5 PT-IP Objective Assessments Start: 12/16/18 10:34 Freq: NEEDED Status: Active Protocol: Document 12/16/18 09:20 (Rec: 12/16/18 10:53 [id number]) Orientation Orientation/Cognition Level of Alertness Alert Orientation Name Age Birthday Month Date Year Day of Week Place Situation Language Function Ability No Deficits Noted Safety Awareness Understands Safety Issues Memory Description No Deficits Noted Gross Range of Motion Upper Extremity ROM Assessment Within Functional Limits Lower Extremity ROM Assessment Within Functional Limits Strength Upper Extremity Strength Assessment Within Functional Limits Lower Extremity Strength Assessment Within Functional Limits Comments Strength Comments no deficits noted between both UEs and LEs Coordination Assessment Gross Coordination Gross Coordination WNL Sensation Assessment Sensation Gross Sensation WNL Muscle Tone Muscle Tone WNL Yes M7 PT-IP Assessment and Plan Start: 12/16/18 10:34 Freq: NEEDED Status: Active Protocol: Document 12/16/18 09:20 (Rec: 12/16/18 10:53 [email or web address]) PT Summary Assessment and Plan Potential Rehabilitation Potential Excellent Status of Condition at Evaluation Stable Summary Progress Towards Goals Safe For Discharge Assessment Summary Pt is a pleasant 42 yo female admitted to due to TIA with elevated HTN. Upon assessment , pt demonstrates WNL ROM, strength and steady gait without using any AD/ UE support. Pt presented safe transfer and overall mobility independently. At this point, pt does not require therapy service due to her resolved symptoms and independent functional level. D/C home when pt is medically ready. Frequency of Treatment Frequency Of Treatment Discharge Recommendations To Nursing Amount of Assist Needed Independent Discharge Recommendations PT Discharge Recommendations Home
[2018-12-16] MEDS: ALPRAZolam 0.5 MG TABLET 1 MG PO (11:14)
[2018-12-16 12:16] VITALS: BP 119/76; PULSE 78; RESP 16; TEMP 36.9; O2SAT 96
--- NOTE | 2018-12-16 13:38 | P.DS_ITS ---
History of Present Illness Date Patient Seen: 12/16/18 Time Patient Seen: 13:38 Chief complaint: R EYE WEIRD VISION,SLURRED SPEECH THIS MORNING Narrative: This is a 42-year-old female with a history of anxiety and pyelonephritis who presents to the ER with a sudden onset of headache field c hange, and slurred speech patient reports having blurring the right visual field that appears to fact both eyes. The patient has associated headache that she describes as a band over the top of her head from ear to ear. She had sources previous headaches in the last 2 weeks described as left parietal stabbing pain. The patient due to her visual changes proceeded to see her mass spectroscopist at which time she developed difficulty speaking having difficulty with word finding. She does state that mass spectroscopist did have the opportunity to examine her retinas and did not see any immediate pathology. The mass spectroscopist directed the patient over to the ER for further evaluation. Additionally the patient was seen in our emergency room approximately 2 weeks ago per patient report for left arm numbness which was worked up with a cardiac evaluation and she was subsequently discharged home. The patient denies recent illness or trauma or prodromal symptoms to the events of the day. She indicates that she is under no more stress than usual. On arrival in the ER the patient was found have a blood pressure 162/110 with heart rate of 75, respiratory rate of 15 and saturation 100% on room air and afebrile with a temperature of 98? 0.0. Patient was evaluated per stroke protocol with no significant findings an EKG was also done that was reported as negative. On laboratory analysis the patient's CBC and chemistry are within normal limits. She has an INR 0.9 and a urine tox screen is positive for benzodiazepines with the patient taking Xanax as needed for anxiety. Patient is admitted to the hospital for ongoing evaluation and monitoring of her neurological symptoms. Discharge Providers Date of admission: 12/15/18 15:11 Primary care physician: KIEL Voss Consults: 12/15/18 19:33 Consult to Discharge Planning Routine Comment: Consult to Physical Therapy Evaluate & Treat Comment: TIA Physician Instructions: Evaluate and Treat Discharge provider: Jonna Handy MD Discharge Date: 12/16/18 Summary Discharge Diagnosis: 1. Atypical Migraine Equivalent 2. Elevated blood pressure, acute, present on arrival 3. Anxiety, chronic Hospital Course: 1. Transitory ischemic attack versus Migraine Equivalent -patient's symptoms involved right visual field loss blurring without complete cut, headache, speech slurring and mild aphasia -patient was similar possible neurologic symptoms evaluated 2 weeks ago worked up in the ER for left arm numbness with a cardiac evaluation, patient subsequently sent home with negative findings -the patient's symptoms have resolved -Brain MRI/MRA is normal. -Recommended trial of Imitrex if symptoms return -Consider Beta Angelina for Migraine prophylaxis and BP control -Consider outpatient Neurology consultation 2. Elevated blood pressure, acute, present on arrival -patient had elevated blood pressure 162/110 without prior history of hypertension, this recurred again today with her anxious episode in the MR scanner - up to 142/113 -Pressure has returned back to within normal range but a Beta Angelina should be considered and she should discuss this with her PCP next week. That would also help with her apparent Migraine Equivalent. -will continue to monitor pressures 3. Anxiety, chronic -patient with mild anxiety on examination -likely contributory to problem 2. -will resume alprazolam Exam Vital Signs (past 8 hours): - 12/16/18 07:22 12/16/18 08:29 12/16/18 12:16 Temperature 98.0 F 98.4 F Pulse Rate 80 78 Respiratory Rate 16 16 Blood Pressure 122/75 119/76 Pulse Oximetry 98 97 96 Oxygen Delivery Method Room Air Oxygen Flow Rate 0 Const General: cooperative, healthy appearing and comfortable Resp Effort & Inspection: normal respiratory effort and able to speak in complete sentences Auscultation: clear to auscultation bilaterally Cardio Rhythm: regular rhythm Heart Sounds: no murmurs Neuro Cranial Nerves: able to elevate shoulders bilaterally Cognition: normal cognition Speech: speech normal Gait: normal gait Motor: muscle tone normal throughout Sensory Exam: no sensory deficits noted Extrem General: No no pedal edema and No pedal edema Objective Labs Result Diagrams: 12/16/18 06:08 12/16/18 06:08 Labs: Laboratory Results - last 24 hr 12/16/18 12/16/18 06:08 06:08 WBC 6.4 RBC 3.96 L Hgb 12.7 Hct 36.3 MCV 91.5 MCH 32.0 MCHC 35.0 RDW 12.3 Plt Count 187 Neut % (Auto) 38.1 L Lymph % (Auto) 49.3 H [place] % (Auto) 6.9 Eos % (Auto) 5.0 H Baso % (Auto) 0.7 Neut # (Auto) 2400 Lymph # (Auto) 3100 [place] # (Auto) 400 Eos # (Auto) 300 Baso # (Auto) 0 Sodium 137 Potassium 4.0 Chloride 108 H Carbon Dioxide 24 BUN 8 Creatinine 0.60 Estimated GFR > 60.0 BUN/Creatinine Ratio 13.3 Glucose 92 Calcium 8.3 L Triglycerides 252 H Cholesterol 156 LDL Cholesterol, Calc 72 HDL Cholesterol 34 L Discharge Plan Discharge Plan Patient Disposition: Home Discharge comment: Please follow up with your PCP Vianey Verde about your Atypical Migraines. The next time this happens it will probably stop quite quickly if you take Imitrex or some other medicine like Imitrex. Discharge Med Rec/Prescriptions Prescriptions: New sumatriptan succinate [Imitrex] 50 mg tablet 50 mg PO Q2-4H PRN (Reason: migraine headache) Qty: 5 RF: 0 Continued alprazolam [Xanax] 1 mg tablet 1 mg PO TID PRN (Reason: anxiety) Qty: 40 RF: 0 bupropion HCl [Wellbutrin SR] 100 mg tablet sustained-release 12 hr 100 mg PO DAILY RF: 0 multivitamin Tablet 1 tab PO DAILY RF: 0 Follow up/Referrals: Vianey Verde ARNP [Primary Care Provider] - (please call & schedule a follow up appointment with jeanine ruiz [phone]) Discharge Data Primary Care Provider: Vianey Verde Attending Provider: Sharmila Green Admit Date/Time: 12/15/18 15:11 Quality VTE Deep Vein Thrombosis/Pulmonary Embolism Present on Admission: No
--- NOTE | 2018-12-16 13:57 | PC.NURSE ---
Pt had a panic attack after being put into the MRI..Given 1mg of xanax and pt feeling better. Bp up to 140s/90s. MRI wnl and pt is going to be discharged home.
== END 2018-12-16 14:45 | disposition home or self-care (01) ==
LOC: ED 14:19 → AC 15:12
PROVIDERS: Admitting Provider Nurse Practitioner Adult Health; Emergency Provider Emergency Medicine; PCP Registered Nurse; Visit Provider Internal Medicine
DX: G45.9 Transient cerebral ischemic attack, unspecified (principal); R29.818 Other symptoms and signs involving the nervous system; R47.81 Slurred speech; F41.9 Anxiety disorder, unspecified; Z87.891 Personal history of nicotine dependence; H53.8 Other visual disturbances; R03.0 Elevated blood-pressure reading, without diagnosis of hypertension
CPT/HCPCS: 36415; 36591; 70450; 70553; 80048; 80061; 80305; 81003; 82962; 85025; 85610; 85730; 93005; 94762; 96360; 96361; 97161; 99283; 99285; 99291; G0378; J1650; J2270

== ENCOUNTER → 2019-04-20 13:48 | Outpatient (CLI) | payer OTHER, SELFPAY ==
[2018-12-15 16:33] VITALS: BMI 21.9
--- NOTE | 2019-04-20 13:50 | DI.CT.S_ITS ---
PROCEDURE: CT CHEST WO CON INDICATIONS: Mid back pain suspicious for pleuritic origin TECHNIQUE: Noncontrast 5 mm thick sections acquired from the pulmonary apices to the posterior costophrenic angles. 7 mm thick coronal and sagittal MIP reformats were then acquired. For radiation dose reduction, the following was used: automated exposure control, adjustment of mA and/or kV according to patient size. COMPARISON: None. FINDINGS: Image quality: Excellent. Lungs and pleura: No acute air space opacities. No pleural effusions or pneumothorax. Central and peripheral airways are patent and normal in caliber. Mediastinum: Heart size is normal. No pericardial effusion. No mediastinal adenopathy by size criteria. Thoracic aorta and central pulmonary arteries are normal in size. Esophagus is normal in caliber. No hiatal hernia. Bones and chest wall: No suspicious bony lesions. No vertebral body compression fractures. No axillary or supraclavicular adenopathy by size criteria. Thyroid gland is within normal limits on noncontrast imaging. Abdomen: Visualized upper abdominal solid organs and bowel loops appear normal in the absence of contrast. IMPRESSION: Negative evaluation of the chest. No explanation for back pain. Dictated by: Herlinda Bosch M.D. on 04/20/2019 at 13:25 Approved by: Herlinda Bosch M.D. on 04/20/2019 at 13:26
== END ==
PROVIDERS: PCP Registered Nurse; Visit Provider Registered Nurse
DX: M54.9 Dorsalgia, unspecified (principal)
CPT/HCPCS: 71250

== ENCOUNTER → 2019-12-11 11:36 | Outpatient (CLI) | payer OTHER, SELFPAY ==
[2018-12-15 16:33] VITALS: BMI 21.9
--- NOTE | 2019-12-11 | DI.MG.S_ITS ---
BILATERAL DIGITAL SCREENING MAMMOGRAM 3D/2D WITH CAD: 12/11/2019 CLINICAL: Routine screening. Family history of breast cancer. Comparison is made [facility] The tissue of both breasts is heterogeneously dense. This may lower the sensitivity of mammography. Current study was also evaluated with a Computer Aided Detection (CAD) system. No significant masses, calcifications, or other findings are seen in either breast. There has been no significant interval change. IMPRESSION: NEGATIVE There is no mammographic evidence of malignancy. A 1 year screening mammogram is recommended. This exam was interpreted at Station ID: [id number]. NOTE: For mammograms, a report in lay terms will be sent to the patient. Approximately 15% of breast malignancies will not be visualized mammographically. In the management of a palpable breast mass, a negative mammogram must not discourage biopsy of a clinically suspicious lesion. Electronically Signed By: Leydi stephenson/sierra:12/12/2019 08:52:58 letter sent: Normal Exam ACR BI-RADS Category 1: Negative [id number]
== END ==
PROVIDERS: PCP Registered Nurse; Referring Provider Registered Nurse; Visit Provider Registered Nurse
DX: Z12.31 Encounter for screening mammogram for malignant neoplasm of breast (principal); Z80.3 Family history of malignant neoplasm of breast
CPT/HCPCS: 77063; 77067

== ENCOUNTER → 2019-12-19 11:24 | Outpatient (CLI) | payer OTHER, SELFPAY ==
[2018-12-15 16:33] VITALS: BMI 21.9
[2019-12-19 12:06] LABS: Cholesterol 206 mg/dL (140-199); HDL Cholesterol 54 mg/dL (40-60); LDL Cholesterol Calculated 116 mg/dL (<100); Triglycerides 180 mg/dL (35-150)
[2019-12-19 12:37] LABS: TSH w/ Reflex to FT4 1.87 uIU/mL (0.47-4.68)
== END ==
PROVIDERS: PCP Registered Nurse; Referring Provider Registered Nurse; Visit Provider Registered Nurse
DX: E78.1 Pure hyperglyceridemia (principal); F41.0 Panic disorder [episodic paroxysmal anxiety]; F41.1 Generalized anxiety disorder
CPT/HCPCS: 36415; 80061; 84443

== ENCOUNTER → 2019-12-22 13:55 | Outpatient (CLI) | payer OTHER, SELFPAY ==
[2018-12-15 16:33] VITALS: BMI 21.9
--- NOTE | 2019-12-22 13:57 | DI.RAD.S_ITS ---
PROCEDURE: XR HAND LT MIN 3V INDICATIONS: Left hand pain TECHNIQUE: 3 views of the hand(s) acquired. COMPARISON: None. FINDINGS: Bones: No fractures or dislocations. Carpal bones are normally aligned. No suspicious bony lesions. Soft tissues: No suspicious soft tissue calcifications. IMPRESSION: No trauma found, source of pain is not identified. Dictated by: Chris Paul M.D. on 12/22/2019 at 15:40 Approved by: Chris Paul M.D. on 12/22/2019 at 15:40
--- NOTE | 2019-12-22 13:57 | DI.RAD.S_ITS ---
PROCEDURE: XR HAND RT MIN 3V INDICATIONS: Right hand pain TECHNIQUE: 3 views of the hand(s) acquired. COMPARISON: None. FINDINGS: Bones: No fractures or dislocations. Carpal bones are normally aligned. No suspicious bony lesions. Soft tissues: No suspicious soft tissue calcifications. IMPRESSION: No degenerative or erosive arthritis is found. No trauma seen. Dictated by: Chris Paul M.D. on 12/22/2019 at 15:40 Approved by: Chris Paul M.D. on 12/22/2019 at 15:41
== END ==
PROVIDERS: PCP Registered Nurse; Referring Provider Registered Nurse; Visit Provider Registered Nurse
DX: M79.642 Pain in left hand (principal); M79.641 Pain in right hand
CPT/HCPCS: 73130

== ENCOUNTER → 2020-01-15 11:48 | Outpatient (CLI) | payer OTHER, SELFPAY ==
[2018-12-15 16:33] VITALS: BMI 21.9
--- NOTE | 2020-01-15 11:50 | DI.RAD.S_ITS ---
PROCEDURE: XR WRIST RT MIN 3V INDICATIONS: right wrist pain, limited ROM, localized swelling TECHNIQUE: 4 views of the wrist were acquired. COMPARISON: None. FINDINGS: Bones: No fractures or dislocations. No suspicious bony lesions. Soft tissues: No suspicious soft tissue calcifications. IMPRESSION: No fracture. If the patient's symptoms do not improve recommend followup radiographs in 10 days to assess for healing sclerosis/occult injury. Dictated by: Saqib Owen M.D. on 01/15/2020 at 13:55 Approved by: Saqib Owen M.D. on 01/15/2020 at 13:57
== END ==
PROVIDERS: PCP Registered Nurse; Referring Provider Family Medicine; Visit Provider Family Medicine
DX: M25.531 Pain in right wrist (principal); M25.431 Effusion, right wrist
CPT/HCPCS: 73110

== ENCOUNTER → 2020-07-29 17:23 | Outpatient (CLI) | payer OTHER, SELFPAY ==
[2018-12-15 16:33] VITALS: BMI 21.9
--- NOTE | 2020-07-29 17:24 | DI.US.S_ITS ---
PROCEDURE: US SOFT TISSUE HEAD AND NECK INDICATIONS: tender lump behind left ear TECHNIQUE: Real-time scanning was performed of the neck region of interest, with image documentation. Color Doppler was also utilized. COMPARISON: [facility], CT, CT HEAD/BRAIN WO CON, 12/15/2018, 11:16. [facility], MR, MR STROKE, 12/16/2018, 9:39. FINDINGS: Scanning is performed at the area of the tender lump posterior to the left ear. At this site, no masses, fluid collections, or abnormal soft tissue nodules can be seen. No abnormal vascularity is seen. Normal bone can be seen at the area of the clinically palpable bump. IMPRESSION: Negative ultrasound, without an imaging explanation found for the patient's presenting history a tender palpable lump posterior to the left ear. Dictated by: Mick Cat M.D. on 07/29/2020 at 17:03 Approved by: Mick Cat M.D. on 07/29/2020 at 17:05
== END ==
PROVIDERS: PCP Registered Nurse; Referring Provider Nurse Practitioner Family; Visit Provider Nurse Practitioner Family
DX: R22.0 Localized swelling, mass and lump, head (principal)
CPT/HCPCS: 76536

== ENCOUNTER → 2021-06-16 08:12 | Outpatient (CLI) | payer OTHER, SELFPAY ==
[2021-01-24 12:12] VITALS: BMI 21.9
[2021-06-16 14:39] LABS: COVID19 -Nasal RAPID Negative (Negative)
== END ==
PROVIDERS: PCP Family Medicine; Visit Provider Obstetrics & Gynecology
DX: Z01.812 Encounter for preprocedural laboratory examination (principal); Z20.822 Contact with and (suspected) exposure to COVID-19
CPT/HCPCS: 87635

== ENCOUNTER 2021-06-17 12:31 | Day surgery (SDC) | payer OTHER, SELFPAY ==
[2021-01-24 12:12] VITALS: BMI 21.9
[2021-06-11 07:44] VITALS: BMI 22.4
[2021-06-17] VITALS (13 sets, daily range): BP systolic 107–162; BP diastolic 64–96; PULSE 59–90; RESP 9–20; TEMP 36.3–37.1; O2SAT 97–100; BMI 22.4
--- NOTE | 2021-06-17 | PATH_ITS ---
[facility] Accession Number: [id number] . 01 Material submitted: . uterus - UTERUS AND BILATERAL FALLOPIAN TUBES . 02 Diagnosis: Uterus and Bilateral Fallopian Tubes, Supracervical Hysterectomy and Bilateral Salpingectomy (Weight 44 grams): Disordered proliferative endometrium; negative for glandular hyperplasia, cytologic atypia, or malignancy. Myometrium with a small leiomyoma (4 mm), otherwise no significant histomorphologic abnormality. Uterine serosa with no significant histomorphologic abnormality. Fallopian tubes x2, complete cross-sections with benign paratubal cysts (1-10 mm); negative for atypia or malignancy. Patchy tubal serosal adhesions present, non-specific. [facility] 06/19/2021 1115 Local . 02 Electronically signed: . Martha Rogel MD, Pathologist NPI- [id number] . 01 Gross description: . The specimen is received in formalin, labeled uterus, bilateral fallopian tubes and consists of a 44-gram fragmented uterus measuring 6.0 x 5.8 x 3.2 cm in aggregate. A cervix is not identified. The serosa is yates-pink and smooth. There is an approximately 3.0 x 3.0 cm endometrial cavity with a yates-pink glistening endometrium measuring 0.1 cm in thickness. The myometrium is yates-pink and trabeculated, measuring 2.0 cm in thickness. There is a 0.4 x 0.3 x 0.3 cm yates-white whorled leiomyoma with no areas of hemorrhage, necrosis or cystic degeneration. Also received are two detached fallopian tubes measuring 4.5 cm in length by 0.6 cm in diameter and 7.0 cm in length by 0.9 cm in diameter. The serosa is yates-pink to pink-purple with fibrinous adhesions and multiple paratubal cysts ranging from 0.2-1.0 cm. Sectioning reveals a yates mucosa with a stellate lumen measuring 0.3 cm in diameter. [employer] sections are submitted. . A1-A3: [employer] uterus, to include leiomyoma. A4: [place] fallopian tube, cross-sections and bisected fimbria. A5-A6: Longer fallopian tube, central cross-sections and bisected fimbria. (EA:[id number]) /MRV 06/18/2021 [facility]6 Local . 02 Pathologist provided ICD-10: N93.9, N92.0 . 02 CPT . 656866 Performed at: 01 [facility] [address] [place] [address], [place], [place] [id number] MD Harrison Mayo MD Phone: [phone] Performed at: [facility] [address] [place], [place] [id number] MD Afshan Dubose MD Phone: [phone]
[2021-06-17] MEDS: LACTATED RINGERS 1,000 ML 42 ML IV ×2 (13:04→16:56)
--- NOTE | 2021-06-17 14:24 | SUR.PREOP ---
Dr Crowe notifying patient that her surgery would be delayed to an emergency . V/U. Cell phone provided to patient so that she could inform her .
--- NOTE | 2021-06-17 15:38 | PM.PREOP ---
Pre-operative Note COVID-19 COVID-19 status: Negative Result date/Date tested (Pos, Neg/Pending): 06/16/21 Interval Note History & Physical reviewed/Exam performed by Physician: Yes Changes to H&P: No
[2021-06-17] MEDS: ACETAMINOPHEN 325 MG TABLET 975 MG PO (15:59)
--- NOTE | 2021-06-17 16:39 | SUR.OPER ---
Lithotomy on padded OR bed. [place] Pad Positioner under torso. Head on pillow, arms padded and tucked at sides. Legs secured in padded yellow fins stirrups.
[2021-06-17] MEDS: CEFAZOLIN 1 GM VIAL 2 GM IV (16:52)
[2021-06-17] MEDS: BUPIVACAINE 0.25% W/ EPI 30 ML VIAL INJ (16:53)
[2021-06-17] MEDS: ROPIVACAINE 0.2% PF 2 MG/ML 10ML AMP 20 ML INJ (17:21)
--- NOTE | 2021-06-17 17:49 | P.OP_ITS ---
Operative Date/Time/Diagnoses Date of procedure: 06/17/21 Time of procedure: 17:49 Pre-op diagnosis: Abnormal uterine bleeding Post-op diagnosis: same Procedure & Clinicians Procedure: Laparoscopic supracervical hysterectomy bilateral salpingectomy Same procedure as scheduled: Yes Indications: Abnormal uterine bleeding Surgeon: Karol Crowe Teacher Of Gifted Students: Magdi Machado Click Yes if Unassisted: No Anesthesia Type: General Operative Notes Findings: Normal tubes with evidence of bilateral tubal ligation, ovaries, and uterus thick adhesion of the omentum to the anterior abdominal wall between the umbilicus and pubic symphysis Closure Type: primary Specimen(s): other (Uterus above the level of bladder with bilateral fallopian tubes) Estimated Blood Loss (mL): 50 Blood products transfused: none Procedure in detail: Patient is brought to the operating room where she underwent general anesthesia and placed in low [facility] stirrups. She was prepped and draped in the usual sterile fashion. A check list was reviewed with the staff in the room prior to beginning of the case. Patient had pulsatile stockings in place and functional. 2 g of Ancef were in prior to beginning of the case.. A Cleaning catheter was placed. A single-tooth tenaculum was placed on the anterior lip of the cervix and the cervix dilated to a #6 Hegar dilator. The uterine manipulator was placed through the cervix into the uterus with the balloon inflated with 3 mL of air. The area of the umbilical incision and the 5 mm right and left lower quadrant incisions were injected with Marcaine. An incision was made with scalpel. The verries needle was placed into the abdomen and confirmed in the appropriate place with withdrawal on a syringe and then free flow of fluid down through the needle. The abdomen was insufflated with CO2. The needle was removed and a 5 mm trocar placed without difficulty. There did not appear to be any damage is placement of the trocar. The right and left lower quadrant incisions were made with the scalpel and the trochars placed without damage to internal structures. The PK forceps were used to cauterize along the mesosalpinx followed by the round ligaments on both sides. Sequential bites were taken down the broad ligaments. The uterine arteries were cauterized. An incision was made above the level bladder pushing the bladder away from the cervix. The TIRSO loop was placed around the uterus and the uterus was amputated above the level of the bladder. Bleeding was controlled with the PK forceps. The PK forceps were used to cauterize in the endocervical canal. A supracervical incision was made and an 11 mm port placed. A 15 mm Endo Catch bag was placed in the abdomen. The uterus and tubes were placed in the bag and brought up through the suprapubic port site. The Davidson O was placed. The uterus was hand morselized. The abdomen was reinsufflated and adequate hemostasis was noted. Bupivicane was placed over the cervix The trochars were removed and the CO2 allowed escape from the abdomen. The fascia layer of the suprapubic site was repaired with 0 Polysorb suture. Skin was closed with 4-0 Monocryl suture at the suprapubic site and the other 3 sites. The patient went to recovery room in good condition. Counts of instruments and sponges were correct. Dr. Machado was present throughout the case to assist with holding the camera, retracting, cauterizing and cutting the structures on the left side of the patient, as well as assisting with morselization of the uterus. Complications: none Post-operative Condition: stable Disposition: Acute Care (Outpatient with bed) Plan for aftercare: Observation with discharge in a.m. if no complications
[2021-06-17] MEDS: fentaNYL 100 MCG/2 ML INJ IV (18:01)
[2021-06-17] MEDS: hydrOXYzine pamoate 25 MG CAPSULE PO (18:02)
[2021-06-17] MEDS: OXYCODONE IR 5 MG TABLET PO (18:26)
[2021-06-17] MEDS: KETOROLAC 30 MG/ML VIAL IV (19:10)
[2021-06-17] MEDS: LACTATED RINGERS 1,000 ML 100 ML IV (19:11)
[2021-06-17] MEDS: OXYCODONE/ACETAMINOPHEN 5/325 TABLET 1 TAB PO (19:19)
[2021-06-17] MEDS: ONDANSETRON 4 MG/2 ML INJ IV (19:20)
--- NOTE | 2021-06-17 19:38 | PC.NURSE ---
Pt arrived on the unit at 1740 rating her pain 7/10 and c/o nausea. She received Zofran 4mg IVP, Ketoralac 30 mg IVP and continued to c/o pain. She was given one percocet. Four lap sites are C/D/I. Abdominal pad no drainage. No emesis and able to sip water. VSS, afebrile.
[2021-06-17] MEDS: ALPRAZolam 0.5 MG TABLET 1 MG PO (20:15)
[2021-06-17] MEDS: DOCUSATE 100 MG CAPSULE 200 MG PO (20:15)
[2021-06-18] MEDS: OXYCODONE/ACETAMINOPHEN 5/325 TABLET 1 TAB PO ×3 (00:20→08:01)
[2021-06-18 00:42] VITALS: BP 129/70; PULSE 83; RESP 16; TEMP 36.6; O2SAT 100
[2021-06-18] MEDS: KETOROLAC 30 MG/ML VIAL IV ×2 (01:01→06:28)
[2021-06-18 03:33] VITALS: BP 121/68; PULSE 71; RESP 16; TEMP 36.3; O2SAT 100
[2021-06-18] MEDS: LACTATED RINGERS 1,000 ML 100 ML IV (04:34)
[2021-06-18 04:58] LABS: Add Manual Diff / Slide Review NO; Basophils Absolute Auto 100 /uL (0-100); Eosinophils Absolute Auto 200 /uL (0-450); Hematocrit 35.7 % (36-46); Hemoglobin 11.9 g/dL (12.0-16.0); Lymphocytes Absolute Auto 1800 /uL (1100-4500); Lymphocytes Percent Auto 17.6 % (25-40); Mean Corpuscular HGB Conc 33.4 % (30-36); Mean Corpuscular Hemoglobin 31.4 PG (26-34); Monocytes Absolute Auto 600 /uL (0-900); Monocytes Percent Auto 6.3 % (3-14); Neutrophils Absolute Auto 7300 /uL (1500-7000); Neutrophils Percent Auto 73.1 % (50-75); Platelet Count 209 X10^3/uL (150-400); Red Cell Distribution Width 13.5 % (11.6-14.8); White Blood Cell Count 9.9 X10^3/uL (4.5-11.0)
--- NOTE | 2021-06-18 07:25 | PM.DS.1 ---
History of Present Illness History of Present Illness Date Patient Seen: 06/18/21 Time Patient Seen: 07:26 Chief complaint: *OPB* Narrative: Status post laparoscopic supracervical hysterectomy bilateral salpingectomy. Discharge Providers Provider Discharge Date: 06/18/21 Primary care physician: Eriberto Saleh DO Discharge provider: Karol Crowe MD Summary Hospital Course Discharge Diagnosis: Abnormal uterine bleeding status post laparoscopic supracervical hysterectomy with bilateral salpingectomies Hospital Course: Status post laparoscopic supracervical hysterectomy bilateral salpingectomy. Patient is doing well with no nausea, ambulatory, urinating well. Patient states her pain is under control. Status at Discharge Cognitive/behavioral status at discharge: oriented Functional status at discharge: independent ambulation Overall status at discharge: patient is progressing back to baseline Time Spent with Patient Time spent: Less than 30 minutes Exam Vital Signs (past 8 hours): - 06/18/21 00:42 06/18/21 03:33 Temperature 97.9 F 97.4 F L Pulse Rate 83 71 Respiratory Rate 16 16 Blood Pressure 129/70 121/68 Pulse Oximetry 100 100 Oxygen Delivery Method Room Air Oxygen Flow Rate 0 Narrative Exam Narrative: Patient's abdomen is soft, mildly distended, nontender. Dressings are clean, dry, intact. Extremities without edema and nontender Objective Labs Result Diagrams: 06/18/21 04:50 Labs: Laboratory Results - last 24 hr 06/18/21 04:50 WBC 9.9 RBC 3.80 L Hgb 11.9 L Hct 35.7 L MCV 94.0 MCH 31.4 MCHC 33.4 RDW 13.5 Plt Count 209 Neut % (Auto) 73.1 Lymph % (Auto) 17.6 L [place] % (Auto) 6.3 Eos % (Auto) 2.0 Baso % (Auto) 1.0 Neut # (Auto) 7300 H Lymph # (Auto) 1800 [place] # (Auto) 600 Eos # (Auto) 200 Baso # (Auto) 100 PFSH Medical History (Updated 06/11/21 @ 07:49 by Nancy Raymundo RN) Anxiety Chronic low back pain without sciatica History of endometrial biopsy (04/03/21) Lump of skin Pyelonephritis (2015) Surgical History (Updated 06/17/21 @ 17:45 by Karol Crowe MD) History of gynecologic surgery Status post delivery Status post tubal ligation (2014) Family History Father In good health Mother No problems noted. Sister In good health Social History household members: spouse and children Smoking Status: Former smoker alcohol intake: current substance use type: does not use Discharge Assessment & Plan Assessment and Plan Assessment: Postoperative laparoscopic supracervical hysterectomy with bilateral salpingectomies doing well Plan of Treatment: Patient is discharged home to be followed up in 1 week. Precautions reviewed with the patient. Discharge Plan Discharge Plan Patient Disposition: Home Discharge orders & Medications Discharge Orders: Discharge (Order); Ordered 06/18/21 Ordered By: Karol Crowe Prescriptions: Continued alprazolam 1 mg tablet See Rx Instructions .ROUTE .COMPLEX Qty: 90 RF: 0 oxycodone-acetaminophen 5-325 mg tablet 1 tab PO Q4-6H PRN (Reason: pain) Qty: 30 RF: 0 Follow up/Referrals: Karol Crowe MD [Physician] - As previously scheduled (1 week) Eriberto Saleh DO [Primary Care Provider] - Diet/Activity/Treatments Diet: Regular Activity: No restrictions Skin/Wound/Dressing Care Report to your healthcare provider any signs of infection, such as:: chills, fever, increased pain and unusual redness Dressing: Remove Band-Aids later today, leave Steri-Strips in place, can get wet just pat dry. Get wet and rub office in week Visit Report/Discharge Packet Instructions: DI for Laparoscopy Discharge Data Primary Care Provider: Eriberto Saleh Attending Provider: Karol Crowe Quality VTE Deep Vein Thrombosis/Pulmonary Embolism Present on Admission: No
[2021-06-18] MEDS: DOCUSATE 100 MG CAPSULE 200 MG PO (08:02)
[2021-06-18 08:24] VITALS: O2SAT 100
[2021-06-18 08:44] VITALS: BP 124/80; PULSE 65; RESP 18; TEMP 36.7; O2SAT 99
[2021-06-18] MEDS: ONDANSETRON 4 MG/2 ML INJ IV (10:25)
--- NOTE | 2021-06-18 11:50 | PC.NURSE ---
Patient is dressed and ready for discharge to home with spouse. Went over D'C instructions. Discussed D'C meds, time of last dose, reviewed stroke education, s/s of infection, showering, activity limits, encouraged patient to drink plenty of fluids to prevent constipation and dehydration, no driving while using narcotics, and follow up appts. Patient denies further questions and was taken out to pov via w/c by RN with spouse and all belongings.
== END 2021-06-18 11:54 | disposition home or self-care (01) ==
LOC: OR 12:33 → AC 18:56
PROVIDERS: PCP Family Medicine; Referring Provider Specialist; Visit Provider Specialist
PROC: 0UT94ZL Resection of Uterus, Supracervical, Percutaneous Endoscopic Approach (ICD-10-PCS; CPT 58542; principal; 2021-06-17 13:30)
DX: D25.9 Leiomyoma of uterus, unspecified (principal); F41.9 Anxiety disorder, unspecified; N83.8 Other noninflammatory disorders of ovary, fallopian tube and broad ligament
CPT/HCPCS: 58542; 36415; 85025; 94760; J0330; J0690; J1100; J1885; J2250; J2405; J2704; J2795; J3010

== ENCOUNTER → 2022-08-25 10:11 | Outpatient (CLI) | payer OTHER, SELFPAY ==
[2021-06-17 19:01] VITALS: BMI 22.4
--- NOTE | 2022-08-25 10:12 | DI.US.S_ITS ---
PROCEDURE: US PELVIC COMPLETE INDICATIONS: SPOTTING POST HYSTERECTOMY TECHNIQUE: Real-time scanning was performed of the pelvic organs, with image documentation. Additional endovaginal scanning was necessary due to incomplete visualization of the adnexal and endometrial structures by transabdominal scanning. COMPARISON: None. FINDINGS: Hysterectomy. Both ovaries normal in size and appearance. No free fluid in the pelvis. No evidence of pelvic soft tissue mass. IMPRESSION: Normal pelvic ultrasound status post hysterectomy. We strive to produce accurate, complete, and clear reports of imaging services. To assist us in improving patient care, this report was composed using standard report templates and voice recognition software. Therefore, it may contain abnormal punctuation, insertions and/or omissions. Occasional wrong-word or sound-alike substitutions may occur. Though we review the report and make efforts to correct it, we do recommend that the report be read carefully in proper context to recognize any text inaccuracies. Dictated by: Refugio Hooper M.D. on 08/25/2022 at 13:52 Approved by: Refugio Hooper M.D. on 08/25/2022 at 13:53
== END ==
PROVIDERS: PCP Family Medicine; Referring Provider Obstetrics & Gynecology; Visit Provider Obstetrics & Gynecology
DX: N92.4 Excessive bleeding in the premenopausal period (principal); Z90.710 Acquired absence of both cervix and uterus
CPT/HCPCS: 76830; 76856

== ENCOUNTER → 2022-10-07 10:15 | Outpatient (CLI) | payer OTHER, SELFPAY ==
[2021-06-17 19:01] VITALS: BMI 22.4
[2022-10-08 11:36] LABS: Candida species Negative (Negative); Gardnerella vaginalis Negative (Negative); Trichomoas vaginalis Negative (Negative)
== END ==
PROVIDERS: PCP Family Medicine; Visit Provider Obstetrics & Gynecology
DX: N89.8 Other specified noninflammatory disorders of vagina (principal)
CPT/HCPCS: 87480; 87510; 87660

== ENCOUNTER → 2022-11-19 09:18 | Outpatient (CLI) | payer OTHER, SELFPAY ==
[2021-06-17 19:01] VITALS: BMI 22.4
[2022-11-19 11:34] LABS: Add Manual Diff / Slide Review NO; Basophils Absolute Auto 100 /uL (0-100); Basophils Percent Auto 1.2 % (0-2); Eosinophils Absolute Auto 300 /uL (0-450); Eosinophils Percent Auto 5.6 % (2-4); Hematocrit 43.2 % (36-46); Hemoglobin 14.4 g/dL (12.0-16.0); Lymphocytes Absolute Auto 2300 /uL (1100-4500); Lymphocytes Percent Auto 39.3 % (25-40); Mean Corpuscular HGB Conc 33.2 % (30-36); Mean Corpuscular Hemoglobin 32.1 PG (26-34); Mean Corpuscular Volume 96.8 fL (80-100); Monocytes Absolute Auto 400 /uL (0-900); Monocytes Percent Auto 7.6 % (3-14); Neutrophils Absolute Auto 2700 /uL (1500-7000); Neutrophils Percent Auto 46.3 % (50-75); Platelet Count 283 X10^3/uL (150-400); Red Blood Cell Count 4.47 X10^6/uL (4.0-5.2); Red Cell Distribution Width 13.1 % (11.6-14.8); White Blood Cell Count 5.8 X10^3/uL (4.5-11.0)
[2022-11-19 12:35] LABS: Alanine Aminotransferase 35 IU/L (<35); Alkaline Phosphatase 83 U/L (38-126); Aspartate Aminotransferase 33 IU/L (14-36); BUN Creatinine Ratio 14.5 (6-22); Bilirubin Total 0.5 mg/dL (0.2-1.3); Blood Urea Nitrogen 8 mg/dL (7-17); Calcium 9.6 mg/dL (8.4-10.2); Carbon Dioxide 26 mmol/L (22-32); Chloride 100 mmol/L (98-107); Cholesterol 263 mg/dL (140-199); Estimated Glomerular Filt Rate > 60 mL/min (>60); Glucose 85 mg/dL (70-100); HDL Cholesterol 51 mg/dL (40-60); HEMOLYSIS < 15 (0-50); LDL Cholesterol Calculated 178 mg/dL (<100); Sodium 138 mmol/L (137-145); Triglycerides 172 mg/dL (35-150)
[2022-11-19 12:45] LABS: Vitamin D 25 Hydroxy (D3) 35.1 ng/mL (30.0-100.0)
[2022-11-19 12:58] LABS: TSH w/ Reflex to FT4 1.79 uIU/mL (0.47-4.68)
[2022-11-19 13:00] LABS: Cortisol AM (Before 10AM) 11.4 ug/dL (4.46-22.7)
[2022-11-20 17:15] LABS: Albumin 4.9 g/dL (3.5-5.0); Albumin Globulin Ratio 1.6 (1.0-2.8); Globulin 3.1 g/dL (1.7-4.1)
== END ==
PROVIDERS: PCP Family Medicine; Referring Provider Family Medicine; Visit Provider Family Medicine
DX: F41.0 Panic disorder [episodic paroxysmal anxiety] (principal); F41.1 Generalized anxiety disorder; Z13.21 Encounter for screening for nutritional disorder; Z13.29 Encounter for screening for other suspected endocrine disorder; Z13.220 Encounter for screening for lipoid disorders
CPT/HCPCS: 36415; 80053; 80061; 82306; 82533; 84443; 85025

== ENCOUNTER 2023-01-05 16:10 | Emergency (ER) | payer OTHER, SELFPAY ==
[2021-06-17 19:01] VITALS: BMI 22.4
[2023-01-05 16:20] VITALS: BP 131/89; PULSE 88; RESP 18; TEMP 36.7; O2SAT 98; BMI 22.3
--- NOTE | 2023-01-05 16:28 | DI.RAD.S_ITS ---
PROCEDURE: XR CHEST 1V INDICATIONS: chest pain TECHNIQUE: One view of the chest was acquired. COMPARISON: None. FINDINGS: Surgical changes and devices: None. Lungs and pleura: Lungs are clear. Asymmetric left hemidiaphragm elevation. No pleural effusions or pneumothorax. Mediastinum: Mediastinal contours appear normal. Heart size is normal. Bones and chest wall: No suspicious bony lesions. Overlying soft tissues appear unremarkable. IMPRESSION: No acute cardiopulmonary disease. Dictated by: Kate Feliciano M.D. on 01/05/2023 at 17:18 Approved by: Kate Feliciano M.D. on 01/05/2023 at 17:19
[2023-01-05] MEDS: ASPIRIN 81 MG CHEW TAB 324 MG PO (16:30)
[2023-01-05 17:26] LABS: Add Manual Diff / Slide Review NO; Basophils Absolute Auto 100 /uL (0-100); Basophils Percent Auto 0.8 % (0-2); Eosinophils Absolute Auto 300 /uL (0-450); Eosinophils Percent Auto 3.2 % (2-4); Hematocrit 39.1 % (36-46); Hemoglobin 13.3 g/dL (12.0-16.0); Lymphocytes Absolute Auto 2600 /uL (1100-4500); Lymphocytes Percent Auto 24.4 % (25-40); Mean Corpuscular Hemoglobin 31.7 PG (26-34); Mean Corpuscular Volume 93.2 fL (80-100); Monocytes Absolute Auto 700 /uL (0-900); Monocytes Percent Auto 6.2 % (3-14); Neutrophils Absolute Auto 6900 /uL (1500-7000); Neutrophils Percent Auto 65.4 % (50-75); Platelet Count 242 X10^3/uL (150-400); Red Cell Distribution Width 12.3 % (11.6-14.8); White Blood Cell Count 10.5 X10^3/uL (4.5-11.0)
[2023-01-05 17:30] LABS: INR 1.1 (0.9-1.3); Prothrombin Time 12.1 SECONDS (10.1-12.7)
[2023-01-05 17:35] LABS: Alanine Aminotransferase 19 IU/L (<35); Albumin 4.5 g/dL (3.5-5.0); Albumin Globulin Ratio 1.6 (1.0-2.8); Alkaline Phosphatase 67 U/L (38-126); Aspartate Aminotransferase 20 IU/L (14-36); BUN Creatinine Ratio 23.1 (6-22); Bilirubin Total 0.6 mg/dL (0.2-1.3); Blood Urea Nitrogen 12 mg/dL (7-17); Calcium 9.3 mg/dL (8.4-10.2); Carbon Dioxide 28 mmol/L (22-32); Chloride 102 mmol/L (98-107); Creatine Kinase 55 U/L (30-135); Estimated Glomerular Filt Rate > 60 mL/min (>60); Globulin 2.8 g/dL (1.7-4.1); Glucose 88 mg/dL (70-100); HEMOLYSIS < 15 (0-50); Lipase 48 U/L (23-300); Magnesium 1.8 mg/dL (1.6-2.3); Potassium 3.6 mmol/L (3.4-5.1); Sodium 138 mmol/L (137-145); Total Protein 7.3 g/dL (6.3-8.2)
[2023-01-05 17:46] LABS: Troponin I < 0.012 ng/mL (0.01-0.034)
[2023-01-05 18:04] LABS: PTT Partial Thromboplastin Tim 37 SECONDS (26-36)
[2023-01-05 18:10] LABS: RBC Urine 0-1/HPF (0-5/HPF); WBC Urine 5-10/HPF (0-5/HPF)
[2023-01-05 18:11] LABS: Bacteria Urine Moderate (10-30); Culture Indicated Urine Specimen Cultured; Squamous Epithelial Cell Urine 1-5 /HPF (0-5/HPF)
[2023-01-05 19:34] LABS: Creatine Kinase 54 U/L (30-135)
[2023-01-05 19:46] LABS: Troponin I < 0.012 ng/mL (0.01-0.034)
--- NOTE | 2023-01-05 20:29 | ED.CHESTPAIN ---
HPI - Chest Pain General Chief Complaint: Chest Pain Stated Complaint: Chest pain and fainting for couple days Time Seen by Provider: 01/05/23 20:18 Source: patient Mode of arrival: Ambulatory Limitations: no limitations History of Present Illness HPI narrative: Patient is a 47-year-old female who has had off and on chest discomfort for the past couple weeks but has been worsened over the past couple days. She states that today she was feeling well. She actually went for a run. Was at the grocery store walking around where she started to have discomfort and lightheadedness. She went out to her car. She states that she felt like someone hit her in the back of the head and she fainted. Unsure how long she was unconscious. When she woke up she was having headache. She states she does have occasional episodes where she feels like her heart is beating fast and skipping beats. She currently is having a headache but her chest is not hurting. No numbness and tingling of the upper lower extremities. Has not been evaluated for these symptoms. In triage was reported that she is had similar symptoms to this in the past and was told that she had a ?neurologic migraine? however she told me that the symptoms today were different than prior events. Related Data Previous Rx's Medication Instructions Recorded alprazolam 1 mg tablet 1 mg PO BEDTIME PRN sleep #10 tabs 11/23/22 sertraline 25 mg tablet 25 mg PO BID #60 tabs 11/23/22 alprazolam 1 mg tablet See Rx Instructions .Route 12/18/22 .COMPLEX #90 tabs Allergies Allergy/AdvReac Type Severity Reaction Status Date / Time No Known Drug Allergies Allergy Verified 11/18/22 11:33 Review of Systems Review of Systems ROS Unobtainable: All systems reviewed & are unremarkable except as noted in HPI and below Patient History Medical History Anxiety Chronic low back pain without sciatica History of endometrial biopsy (04/03/21) Insomnia disorder, with non-sleep disorder mental comorbidity Lump of skin Mild hypercholesterolemia Pyelonephritis (2015) Surgical History (Updated 06/17/21 @ 17:45 by Karol Crowe MD) History of gynecologic surgery Status post delivery Status post tubal ligation (2014) Family History Father In good health Mother No problems noted. Sister In good health Social History household members: spouse and children Smoking Status: Former smoker alcohol intake: current substance use type: does not use Smoking Status: Former smoker Substance Use Type: does not use Exam Initial Vital Signs Initial Vital Signs: Vital Signs Temperature 98.1 F 01/05/23 16:20 Pulse Rate 88 01/05/23 16:20 Respiratory Rate 18 01/05/23 16:20 Blood Pressure 131/89 01/05/23 16:20 Pulse Oximetry 98 01/05/23 16:20 Oxygen Delivery Method Room Air 01/05/23 16:20 Const General: cooperative, comfortable and No ill appearing HENMT Head: normal to inspection and normocephalic Resp Effort & Inspection: normal respiratory effort Auscultation: clear to auscultation bilaterally Cardio Rate: regular rate Rhythm: regular rhythm GI Inspection: normal to inspection Skin General: no rashes or lesions noted Neuro General: patient alert, patient awake, patient oriented x3 and moves all extremities Extrem General: normal to inspection and capillary refill normal Scores HEART Score Heart Score history: Slightly Suspicious Heart Score EKG: Normal Heart Score Age: 45-64 years old Heart Score risk factors: 1-2 risk factors Heart Score troponin: < or = to normal limit Heart Score Total: 2 Course Orders Ordered: ED Orders 01/05/23 19:15 Troponin & CK Cardiac Panel Stat Discontinued Medications Aspirin (Aspirin 81 Mg Chew Tab) 324 mg PO NOW ONE Stop: 01/05/23 16:29 Last Admin: 01/05/23 16:30 Dose: 324 mg Documented By: FLEX Vital Signs Vital signs: Vital Signs - 8 hr 01/05/23 20:53 Pulse Rate 76 Respiratory Rate 18 Blood Pressure 168/72 H Pulse Oximetry 98 Oxygen Delivery Method Room Air MDM - Chest Pain Lab Data Attestation: I reviewed the patient's lab results. 01/05/23 17:08 01/05/23 17:08 Labs: Lab Results 01/05/23 01/05/23 01/05/23 Range/Units 17:08 17:08 17:08 WBC 10.5 (4.5-11.0) X10^3/uL RBC 4.20 (4.0-5.2) X10^6/uL Hgb 13.3 (12.0-16.0) g/dL Hct 39.1 (36-46) % MCV 93.2 (80-100) fL MCH 31.7 (26-34) PG MCHC 34.0 (30-36) % RDW 12.3 (11.6-14.8) % Plt Count 242 (150-400) X10^3/uL Neut % (Auto) 65.4 (50-75) % Lymph % (Auto) 24.4 L (25-40) % Garrett % (Auto) 6.2 (3-14) % Eos % (Auto) 3.2 (2-4) % Baso % (Auto) 0.8 (0-2) % Neut # (Auto) 6900 (7909-3031) /uL Lymph # (Auto) 2600 (5567-5021) /uL Garrett # (Auto) 700 (0-900) /uL Eos # (Auto) 300 (0-450) /uL Baso # (Auto) 100 (0-100) /uL PT 12.1 (10.1-12.7) SECONDS INR 1.1 (0.9-1.3) APTT 37 H (26-36) SECONDS Sodium 138 (137-145) mmol/L Potassium 3.6 (3.4-5.1) mmol/L Chloride 102 (98-107) mmol/L Carbon Dioxide 28 (22-32) mmol/L BUN 12 (7-17) mg/dL Creatinine 0.52 (0.52-1.04) mg/dL Estimated GFR > 60 (>60) mL/min BUN/Creatinine Ratio 23.1 H (6-22) Glucose 88 (70-100) mg/dL Calcium 9.3 (8.4-10.2) mg/dL Magnesium 1.8 (1.6-2.3) mg/dL Total Bilirubin 0.6 (0.2-1.3) mg/dL AST 20 (14-36) IU/L ALT 19 (<35) IU/L Alkaline Phosphatase 67 (38-126) U/L Total Creatine Kinase 55 (30-135) U/L CK-MB (CK-2) TNP CK-MB (CK-2) Rel Index TNP Troponin I < 0.012 (0.01-0.034) ng/mL Total Protein 7.3 (6.3-8.2) g/dL Albumin 4.5 (3.5-5.0) g/dL Globulin 2.8 (1.7-4.1) g/dL Albumin/Globulin Ratio 1.6 (1.0-2.8) Lipase 48 (23-300) U/L Urine RBC (0-5/HPF) Urine WBC (0-5/HPF) Ur Squamous Epith Cells (0-5/HPF) Urine Bacteria (None) Ur Culture Indicated? 01/05/23 01/05/23 Range/Units 17:24 19:15 WBC (4.5-11.0) X10^3/uL RBC (4.0-5.2) X10^6/uL Hgb (12.0-16.0) g/dL Hct (36-46) % MCV (80-100) fL MCH (26-34) PG MCHC (30-36) % RDW (11.6-14.8) % Plt Count (150-400) X10^3/uL Neut % (Auto) (50-75) % Lymph % (Auto) (25-40) % Garrett % (Auto) (3-14) % Eos % (Auto) (2-4) % Baso % (Auto) (0-2) % Neut # (Auto) (3579-7519) /uL Lymph # (Auto) (7158-8499) /uL Garrett # (Auto) (0-900) /uL Eos # (Auto) (0-450) /uL Baso # (Auto) (0-100) /uL PT (10.1-12.7) SECONDS INR (0.9-1.3) APTT (26-36) SECONDS Sodium (137-145) mmol/L Potassium (3.4-5.1) mmol/L Chloride (98-107) mmol/L Carbon Dioxide (22-32) mmol/L BUN (7-17) mg/dL Creatinine (0.52-1.04) mg/dL Estimated GFR (>60) mL/min BUN/Creatinine Ratio (6-22) Glucose (70-100) mg/dL Calcium (8.4-10.2) mg/dL Magnesium (1.6-2.3) mg/dL Total Bilirubin (0.2-1.3) mg/dL AST (14-36) IU/L ALT (<35) IU/L Alkaline Phosphatase (38-126) U/L Total Creatine Kinase 54 (30-135) U/L CK-MB (CK-2) TNP CK-MB (CK-2) Rel Index TNP Troponin I < 0.012 (0.01-0.034) ng/mL Total Protein (6.3-8.2) g/dL Albumin (3.5-5.0) g/dL Globulin (1.7-4.1) g/dL Albumin/Globulin Ratio (1.0-2.8) Lipase (23-300) U/L Urine RBC 0-1/hpf (0-5/HPF) Urine WBC 5-10/hpf H (0-5/HPF) Ur Squamous Epith Cells 1-5 /hpf (0-5/HPF) Urine Bacteria Moderate (10-30) H (None) Ur Culture Indicated? Specimen cultured Urine Dip Bedside Urine Glucose Negative Bedside Urine Bilirubin - Negative Bedside Urine Ketone - Negative Urine Specific [place] 1.005 Bedside Urine Occult Blood +/- Bedside Urine pH 6.5 Bedside Urine Protein - Negative Bedside Urine Urobilinogen - Negative Bedside Urine Nitrite - Negative Bedside Urine Leukocytes - Negative Esterase Imaging Data Chest x-ray: Radiologist's Impression: PROCEDURE:? XR CHEST 1V ? INDICATIONS:? chest pain ? TECHNIQUE:? One view of the chest was acquired.? ? COMPARISON:? None. ? FINDINGS:? ? Surgical changes and devices:? None.? ? Lungs and pleura:? Lungs are clear.? Asymmetric left hemidiaphragm elevation.? No pleural effusions or pneumothorax.? ? Mediastinum:? Mediastinal contours appear normal.? Heart size is normal.? ? Bones and chest wall:? No suspicious bony lesions.? Overlying soft tissues appear unremarkable.? ? IMPRESSION:? No acute cardiopulmonary disease.? ECG Data Attestation: I personally reviewed and interpreted this ECG as follows: Interpretation: Sinus rhythm Ventricular rate 82 Normal axis Normal QTC No ST T wave changes MDM Narrative Medical decision making narrative: Troponins negative x2. Low risk heart score. EKG is unremarkable. Benign exam. Benign labs. Low suspicion for seizure. Low suspicion for intracranial hemorrhage. No indication for head CT. I did discuss the possibility that this was an arrhythmia that was transient. She has had palpitations in the past. Her EKG today is unremarkable. Will discharge patient home. Will have her contact her primary doctor for follow-up. She was given return precautions. She expressed understanding and agreement. Discharge Plan Departure Patient Disposition: Home Clinical Impression: Headache, Fainting Instructions: DI for Syncope in Adults (Fainting) Activity Restrictions/Additional Instructions: Recommend that you continue to take all of your medications as directed. Contact your primary doctor for follow-up to discuss the indications for a Holter monitor. Return to the emergency department for any new or worsening symptoms. Prescriptions: No Action alprazolam 1 mg tablet See Rx Instructions .ROUTE .COMPLEX Qty: 90 5RF Rx Instructions: Take 1 tablet by mouth 3 times daily as needed for anxiety sertraline 25 mg tablet 25 mg PO BID Qty: 60 1RF alprazolam 1 mg tablet 1 mg PO BEDTIME PRN (Reason: sleep) Qty: 10 0RF Referrals: Payam Saleh DO [Primary Care Provider] - Stand Alone Forms: Patient Portal/API
[2023-01-05 20:53] VITALS: BP 168/72; PULSE 76; RESP 18; O2SAT 98
--- NOTE | 2023-01-05 20:54 | PC.NURSE ---
cardiac exam deferred to DR Contreras.
== END 2023-01-05 20:55 | disposition home or self-care (01) ==
PROVIDERS: Emergency Medicine; Emergency Provider Emergency Medicine; PCP Family Medicine
DX: R55 Syncope and collapse (principal); R51.9 Headache, unspecified; R07.9 Chest pain, unspecified
CPT/HCPCS: 36415; 71045; 80053; 81003; 81015; 82550; 83690; 83735; 84484; 85025; 85610; 85730; 87077; 87086; 87186; 93005; 99284

== ENCOUNTER → 2023-01-11 13:46 | Outpatient (CLI) | payer OTHER, SELFPAY ==
[2021-06-17 19:01] VITALS: BMI 22.4
--- NOTE | 2023-01-11 13:47 | DI.CT.S_ITS ---
PROCEDURE: CT HEAD/BRAIN WO CON INDICATIONS: loss of consciousness, head pain TECHNIQUE: Noncontrast 4.5 mm thick angled axial sections acquired from the foramen magnum to the vertex, with coronal and sagittal reformats. For radiation dose reduction, the following was used: automated exposure control, adjustment of mA and/or kV according to patient size. COMPARISON: None. FINDINGS: Image quality: Excellent. CSF spaces: Basal cisterns are patent. No extra-axial fluid collections. Ventricles are normal in size and shape. Brain: No midline shift. No intracranial masses or hemorrhage. Currie-white matter interface is normal. Skull and face: Calvarium and visualized facial bones are intact, without suspicious lesions. Sinuses: Visualized sinuses and mastoids are clear. IMPRESSION: Normal exam. Dictated by: Refugio Hooper M.D. on 01/11/2023 at 14:22 Approved by: Refugio Hooper M.D. on 01/11/2023 at 14:23
== END ==
PROVIDERS: PCP Family Medicine; Referring Provider Family Medicine; Visit Provider Family Medicine
DX: R51.9 Headache, unspecified (principal); R55 Syncope and collapse
CPT/HCPCS: 70450

== ENCOUNTER → 2023-01-14 07:31 | Outpatient (CLI) | payer OTHER, SELFPAY ==
[2021-06-17 19:01] VITALS: BMI 22.4
== END ==
PROVIDERS: PCP Family Medicine; Referring Provider Family Medicine; Visit Provider Family Medicine
DX: R00.2 Palpitations (principal); R55 Syncope and collapse; R51.9 Headache, unspecified
CPT/HCPCS: 93242

== ENCOUNTER → 2023-07-23 12:54 | Outpatient (CLI) | payer OTHER, SELFPAY ==
[2021-06-17 19:01] VITALS: BMI 22.4
--- NOTE | 2023-07-23 12:55 | DI.MG.S_ITS ---
BILATERAL DIGITAL SCREENING MAMMOGRAM 3D/2D WITH CAD: 07/23/2023 CLINICAL: Routine screening. Family history of breast cancer. Comparison is made to exams dated: 12/11/2019 mammogram and 12/06/2018 mammogram - [facility]. Both breasts are heterogeneously dense, which may obscure small masses (category c / 51-75% glandular tissue). Current study was also evaluated with a Computer Aided Detection (CAD) system. No significant masses, calcifications, or other findings are seen in either breast. There has been no significant interval change. IMPRESSION: NEGATIVE There is no mammographic evidence of malignancy. A 1 year screening mammogram is recommended. Based on the Tyrer Cuzick model (a risk assessment model) the patient's lifetime risk is 13.3% and her 10 year risk is 2.7%. According to the ACR, ACS, and NCCN guidelines, an annual breast MRI exam along with mammogram is recommended if the patient's lifetime risk is 20% or greater. This exam was interpreted at Station ID: [id number]. NOTE: For mammograms, a report in lay terms will be sent to the patient. Approximately 15% of breast malignancies will not be visualized mammographically. In the management of a palpable breast mass, a negative mammogram must not discourage biopsy of a clinically suspicious lesion. Electronically Signed By: Torito brar/sierra:07/23/2023 17:09:34 letter sent: Normal Exam ACR BI-RADS Category 1: Negative 3341F
== END ==
PROVIDERS: PCP Family Medicine; Referring Provider Family Medicine; Visit Provider Family Medicine
DX: Z12.31 Encounter for screening mammogram for malignant neoplasm of breast (principal); Z80.3 Family history of malignant neoplasm of breast
CPT/HCPCS: 77063; 77067

== ENCOUNTER 2023-12-07 07:20 | Day surgery (SDC) | payer OTHER, SELFPAY ==
[2023-08-04 10:51] VITALS: BMI 22.4
--- NOTE | 2023-12-07 | PATH_ITS ---
[facility] Accession Number: [id number] No. of containers..02 Tissue . 01 Material submitted: . PART A: colon - TRANSVERSE COLON POLYP PART B: colon - SIGMOID COLON POLYP . 01 Diagnosis: A. Transverse Colon Polyp: Tubular adenoma. . B. Sigmoid Colon Polyp: Tubular adenoma. MRV 12/09/2023 1922 Local . 01 Electronically signed: . Raul Santiago MD, PhD, Pathologist NPI- [id number] . 01 Gross description: . Part A: TRANSVERSE COLON POLYP: Received in formalin is 2 fragment(s) of yates, soft tissue measuring 0.3 x 0.2 x 0.1 cm to 0.2 x 0.2 x 0.1 cm submitted entirely in 1 cassette(s) Part B: SIGMOID COLON POLYP: Received in formalin is 1 fragment(s) of yates, soft tissue measuring 0.2 x 0.2 x 0.2 cm submitted entirely in 1 cassette(s) /AAY 12/08/2023 0431 Local . 01 Pathologist provided ICD-10: D12.3, D12.5 . 01 CPT . 456096, 045494 Specimen Comment: A courtesy copy of this report has been sent to [phone] Performed at: 01 [facility] [address] [place] [address], [place], [place] [id number] MD Harrison Mayo MD Phone: [phone]
[2023-12-07 07:54] VITALS: BP 155/104; PULSE 78; RESP 16; TEMP 36.1; O2SAT 100
[2023-12-07] MEDS: LACTATED RINGERS 1,000 ML 42 ML IV (08:07)
--- NOTE | 2023-12-07 08:09 | PM.HP.1 ---
History of Present Illness History of Present Illness Date Patient Seen: 12/07/23 Time Patient Seen: 08:10 Chief complaint: Colonoscopy Narrative: 47-year-old woman here for screening colonoscopy. No family history of intestinal malignancy. History of chronic constipation no unintentional weight loss blood per rectum. No previous colonoscopy. [facility] Medical History Left ear pain Otitis media Dizziness of unknown cause Mild hypercholesterolemia Insomnia disorder, with non-sleep disorder mental comorbidity History of endometrial biopsy (04/03/21) Chronic low back pain without sciatica Lump of skin Anxiety Pyelonephritis (2015) Surgical History History of gynecologic surgery Status post tubal ligation (2014) Status post delivery Family History Father In good health Mother No problems noted. Sister In good health Social History household members: spouse and children Smoking Status: Former smoker alcohol intake: former substance use type: does not use Meds Home Medications and Allergies Home Medications Medication Instructions Recorded Confirmed Type alprazolam 1 mg tablet See Rx Instructions .Route 11/12/23 12/07/23 Rx .COMPLEX #90 tabs sodium,potassium,mag sulfates 17.5 See Rx Instructions PO .COMPLEX 11/29/23 Rx gram-3.13 gram-1.6 gram oral soln #354 mL (Suprep Bowel Prep Kit) Allergies Allergy/AdvReac Type Severity Reaction Status Date / Time No Known Drug Allergies Allergy Verified 12/07/23 07:54 Exam Vital Signs (past 8 hours): - 12/07/23 07:54 Temperature 97 F L Pulse Rate 78 Respiratory Rate 16 Blood Pressure 155/104 H Pulse Oximetry 100 Oxygen Delivery Method Room Air Oxygen Delivery Method Room Air Narrative Exam Narrative: General adult woman alert oriented no acute distress Chest nonlabored respiration Extremities warm well perfused Assessment & Plan Assessment & Plan narrative: The patient requires colorectal screening and colonoscopy is recommended. Technical details were discussed. Risks, benefits, alternatives explained. Risks including but not limited to myocardial infarction, aspiration, bleeding, pain, missed lesion, incomplete examination, need for further radiographic studies, colonic perforation, and need for major abdominal surgery were discussed. All questions were answered to their satisfaction, and they are in agreement with this plan.
--- NOTE | 2023-12-07 08:11 | P.OP.COLON_ITS ---
Operative Date/Time/Diagnoses Date of procedure: 12/07/23 Time of procedure: 08:55 Pre-op diagnosis: Colorectal screening Post-op diagnosis: other (Colonic polyps x2) Procedure & Clinicians Study performed: Colonoscopy Same procedure as scheduled: Yes Indications: Colorectal screening Surgeon: Soto Dupree Procedure Notes Procedure in detail: The history and physical was performed/updated and the patient is ASA class is 2. The procedure was discussed in detail with the patient. Potential risks complications including infection, bleeding, missed diagnosis, perforation, need for surgery, and were explained. Their questions were answered and informed consent was obtained. Patient was brought to the procedure room and placed standard monitoring equipment. The patient's vital signs were monitored continuously throughout the entire procedure. Prior to starting time-out was performed. The patient was placed in the left lateral recumbent position. Procedural sedation was administered by anesthesia. Examination began with a thorough inspection of the perianal area there was no evidence of fissures, fistulae, external hemorrhoids or cutaneous malignancy. The colonoscopy scope was then placed into the anal canal and was advanced to the cecum, which was identified by the ileocecal valve, the appendiceal orifice and the confluence of the taenia. The scope was then slowly withdrawn examining colon thoroughly in all directions, irrigating it of any residual stool. The scope was retroflexed within the rectum The patient tolerated the procedure well. They will be discharged once criteria are met. The prep was of good/excellent quality. The withdrawl time was 7 minutes. FINDINGS * Transverse colon-5 mm polyp removed with biopsy forceps * Sigmoid colon 5 mm polyp removed with biopsy forceps Specimen(s): other (Transverse and sigmoid colon polyps) Impression: Colonic polyps x2 Post-procedure Plan for aftercare: Follow-up is dependent on pathology findings likely 5 years. Disposition: same day surgery
[2023-12-07 08:53] VITALS: BP 118/76; PULSE 76; RESP 14; TEMP 36.2; O2SAT 97
[2023-12-07 08:58] VITALS: BP 108/71; PULSE 72; PULSE 85; RESP 12; RESP 17; O2SAT 100; O2SAT 98
[2023-12-07 09:03] VITALS: BP 138/83; PULSE 72; RESP 12; O2SAT 100
[2023-12-07 09:08] VITALS: BP 127/88; PULSE 66; RESP 14; O2SAT 97
[2023-12-07 09:16] VITALS: BP 136/88; PULSE 64; RESP 14; TEMP 36.2; O2SAT 97
== END 2023-12-07 09:22 | disposition home or self-care (01) ==
PROVIDERS: PCP Family Medicine; Referring Provider Surgery; Visit Provider Surgery
PROC: 0DJD8ZZ Inspection of Lower Intestinal Tract, Via Natural or Artificial Opening Endoscopic (ICD-10-PCS; CPT 45378; principal; 2023-12-07 08:15)
DX: Z12.11 Encounter for screening for malignant neoplasm of colon (principal); D12.3 Benign neoplasm of transverse colon; D12.5 Benign neoplasm of sigmoid colon
CPT/HCPCS: 45380; J2250; J2704

== ENCOUNTER → 2024-08-15 13:19 | Outpatient (CLI) | payer OTHER, SELFPAY ==
[2024-04-04 11:23] VITALS: BMI 22.4
--- NOTE | 2024-08-15 13:19 | DI.MG.S_ITS ---
BILATERAL DIGITAL SCREENING MAMMOGRAM 3D/2D WITH CAD: 08/15/2024 CLINICAL: Routine screening. Family history of breast cancer. Comparison is made to exams dated: 07/23/2023 mammogram, 12/11/2019 mammogram, and 12/06/2018 mammogram - [facility]. The breasts are heterogeneously dense, which may obscure small masses (category c / 51-75% glandular tissue). Current study was also evaluated with a Computer Aided Detection (CAD) system. No significant masses, calcifications, or other findings are seen in either breast. There has been no significant interval change. IMPRESSION: NEGATIVE There is no mammographic evidence of malignancy. A 1 year screening mammogram is recommended. Based on the Tyrer Cuzick model (a risk assessment model) the patient's lifetime risk is 13.3% and her 10 year risk is 2.8%. According to the ACR, ACS, and NCCN guidelines, an annual breast MRI exam along with mammogram is recommended if the patient's lifetime risk is 20% or greater. This exam was interpreted at Station ID: [id number]. NOTE: For mammograms, a report in lay terms will be sent to the patient. Approximately 15% of breast malignancies will not be visualized mammographically. In the management of a palpable breast mass, a negative mammogram must not discourage biopsy of a clinically suspicious lesion. Electronically Signed By: Elieser de león/sierra:08/15/2024 13:55:04 letter sent: Normal Exam ACR BI-RADS Category 1: Negative
== END ==
LOC: MAMMO 13:19
PROVIDERS: PCP Family Medicine; Referring Provider Family Medicine; Visit Provider Family Medicine
DX: Z12.31 Encounter for screening mammogram for malignant neoplasm of breast (principal); R92.333 Mammographic heterogeneous density, bilateral breasts; Z80.3 Family history of malignant neoplasm of breast
CPT/HCPCS: 77063; 77067